=== PATIENT | female | born 1940 | race Caucasian/White ===

== ENCOUNTER 2024-10-23 15:11 | Emergency (ER) | payer MEDICARE, SELFPAY ==
[2024-10-23 15:21] VITALS: BP 152/78; PULSE 65; RESP 16; TEMP 36.8; O2SAT 98; BMI 25.7
--- NOTE | 2024-10-23 15:37 | ED.GENADULT ---
HPI - General Adult General Chief complaint: Unspecified Complaint, Adult Stated complaint: blood pressure changes Time Seen by Provider: 10/23/24 15:21 History of Present Illness HPI narrative: Pt reports her blood pressure has been fluctuating up and down today, pt mostly concerned with how high it has been. Pt has checked her blood pressure at least 13 times today, ranges from 140 -190 systolic. Pt reports her family member is having surgery today and this has been stressing her out as well . 84-year-old woman presenting to the emergency department with concern of elevated blood pressure. She has been measuring her systolic blood pressures today in the between 140 and 190 systolic. Does have a history of hypertension. here with her and she acknowledges that is very much affected by anxiety. She is not having shortness of breath or chest pain. No headaches or visual changes. No nausea. Is anticoagulated. Particularly mentions stressor of [id number] a being in the hospital. History also of non-Hodgkin's lymphoma in remission Related Data Home Medications ?Medication ?Instructions ?Recorded ?Confirmed amitriptyline 10 mg tablet mg PO 10/23/24 apixaban 2.5 mg tablet (Eliquis) 2.5 mg PO BID 10/23/24 10/23/24 atenolol 25 mg tablet 25 mg PO DAILY 10/23/24 10/23/24 atenolol 50 mg tablet 50 mg PO DAILY 10/23/24 10/23/24 calcium 600 mg capsule 600 mg PO DAILY 10/23/24 10/23/24 cholecalciferol (vitamin D3) 50 2,000 unit PO DAILY 10/23/24 10/23/24 mcg (2,000 unit) capsule famotidine 20 mg tablet 20 mg PO DAILY 10/23/24 10/23/24 levothyroxine 75 mcg tablet 75 mcg PO DAILY 10/23/24 10/23/24 losartan 25 mg tablet 12.5 mg PO BID 10/23/24 10/23/24 hhvmzrdd-bmk-cuia-FA-vit K-lut PO 10/23/24 omeprazole 20 mg capsule,delayed 20 mg PO DAILY 10/23/24 10/23/24 release psyllium PO 10/23/24 Allergies Allergy/AdvReac Type Severity Reaction Status Date / Time morphine AdvReac Mild Hallucinati Verified 10/23/24 15:28 ng Review of Systems Status of ROS: Reports: 6 or more systems reviewed and unremarkable except as noted in History and below Exam Narrative: Exam Narrative: Very pleasant. Of good energy. Anxious. Cranial nerves 2-12 intact. Moving all extremities without difficulties and she is well-perfused. Heart in regular rate and rhythm with 2/6 holosystolic murmur across the precordium. Lungs are clear. She is intensely chewing gum. Const: Vital Signs, click to edit/add: Vital Signs - 24 hr 10/23/24 15:21 Temperature 98.2 F Pulse Rate [Pulse Oximeter] 65 Respiratory Rate 16 Blood Pressure [Ri t Upper Arm] 152/78 H Pulse Oximetry 98 Oxygen Delivery Me thod Room Air Documenting provider has reviewed patient's vital signs: yes Course Vital Signs Vital signs: Initial Vital Signs Temperature 98.2 F 10/23/24 15:21 Temperature Source Temporal Artery Scan 10/23/24 15:21 Pulse Rate 65 10/23/24 15:21 Respiratory Rate 16 10/23/24 15:21 Blood Pressure 152/78 H 10/23/24 15:21 Blood Pressure Mean 102 10/23/24 15:21 Blood Pressure Position Sitting 10/23/24 15:21 Pulse Oximetry 98 10/23/24 15:21 Oxygen Delivery Method Room Air 10/23/24 15:21 Vital Signs Temperature 98.2 F 10/23/24 15:21 Pulse Rate 65 10/23/24 15:21 Respiratory Rate 16 10/23/24 15:21 Blood Pressure 152/78 H 10/23/24 15:21 Pulse Oximetry 98 10/23/24 15:21 Oxygen Delivery Method Room Air 10/23/24 15:21 Temperature 98.2 F 10/23/24 15:21 Pulse Rate 65 10/23/24 15:21 Respiratory Rate 16 10/23/24 15:21 Blood Pressure 152/78 H 10/23/24 15:21 Pulse Oximetry 98 10/23/24 15:21 Oxygen Delivery Method Room Air 10/23/24 15:21 Medical Decision Making MDM Narrative Medical decision making narrative: Offered reassurance regarding his blood pressure at this time. Arrives with a blood pressure 152/78. Does not have any other red flags to generate evaluation for hypertensive urgency or emergency. Spent majority of time in conversation, counseling. In review of records I see an echocardiogram from January of 2022 which showed normal LV size and wall thickness, hyperdynamic systolic function with an estimated ejection fraction of 70-75%. Moderately enlarged left atrium Mitral valve normal with mild regurgitation Suggestion of possible patent foramen ovale Feels improved and safe to return home. See patient discharge plan for further discussion Is okay to check your blood pressure. I think once or twice a day every couple of days is fine though and after some minutes of rest. Would check though otherwise if you seem to be feeling more lightheaded or have a bad headache or feeling short of breath with chest pain. Though for these symptoms, if they are persisting would also present to the emergency department. I do hope that things go well for her [id number], your family. Medical Records Medical records reviewed: Yes I reviewed the patient's medical records Discharge Plan Discharge Clinical Impression: High blood pressure, Other social stressor Patient Disposition: Home w/ Parent or Adult Condition: Improved Instructions: Hypertension (ED) Additional Instructions: Is okay to check your blood pressure. I think once or twice a day every couple of days is fine though and after some minutes of rest. Would check though otherwise if you seem to be feeling more lightheaded or have a bad headache or feeling short of breath with chest pain. Though for these symptoms, if they are persisting would also present to the emergency department. I do hope that things go well for her [id number], your family. Prescriptions: No Action atenolol 25 mg tablet 25 mg PO DAILY levothyroxine 75 mcg tablet 75 mcg PO DAILY famotidine 20 mg tablet 20 mg PO DAILY amitriptyline 10 mg tablet PO losartan 25 mg tablet 12.5 mg PO BID omeprazole 20 mg capsule,delayed release(DR/EC) 20 mg PO DAILY atenolol 50 mg tablet 50 mg PO DAILY Eliquis 2.5 mg tablet 2.5 mg PO BID cholecalciferol (vitamin D3) 50 mcg (2,000 unit) capsule 2,000 unit PO DAILY cllpevzm-idd-terf-FA-vit K-lut [Centrum Silver Women] PO calcium 600 mg capsule 600 mg PO DAILY psyllium [Metamucil (sugar)] PO Follow Up/Referrals: PEPE ZARAGOZA DO [Primary Care Provider] - Stand Alone Forms: WonderHowTo Info Instructions
== END 2024-10-23 16:25 | disposition home or self-care (01) ==
PROVIDERS: Emergency Provider Family Medicine; PCP Student in an Organized Health Care Education/Training Program
DX: I10 Essential (primary) hypertension (principal); F43.9 Reaction to severe stress, unspecified
CPT/HCPCS: 99282; 99283

== ENCOUNTER 2024-11-03 10:17 | Outpatient (RCR) | payer MEDICARE, SELFPAY | END 2025-01-12 10:35 | disposition home or self-care (01) | PROVIDERS: PCP Student in an Organized Health Care Education/Training Program; Visit Provider Family Medicine | DX: M17.12 Unilateral primary osteoarthritis, left knee (principal); M25.512 Pain in left shoulder; G89.29 Other chronic pain; R26.89 Other abnormalities of gait and mobility; Z51.89 Encounter for other specified aftercare | CPT/HCPCS: 97110; 97161 ==

== ENCOUNTER 2025-05-05 08:03 | Emergency (ER) | payer MEDICARE, SELFPAY ==
--- OUTSIDE RECORDS SUMMARY | 2025-05-05 08:05 | XMS_ITS | Clinical Summary ---
Author Organization [facility] Address [address] [place] [id number] Care Team Providers Care Supervisor Electronics Testing Name Role Phone Bruno Howard MD Unavailable [phone] Pepe Lange DO Primary Care Provider [phone] Leland Whaley MD Unavailable Angelina Medina NP Unavailable [phone] Allergies Active Allergy Reactions Criticality Noted Date Comments Rosuvastatin GI Upset 05/02/2023 Lactose *Unknown - Follow up needed 08/23/20 10 Morphine Hallucinations 04/23/2006 Pravastatin Myalgia 10/11/2020 Ezetimibe Myalgia 08/28/2023 Simvastatin Myalgia 07/15/2014 Medications MULTIPLE VITAMINS TAB take 1 tablet by oral route once daily with food 0 7 Active Calcium carbonate (OYSTERSHELL CALCIUM) 500 mg tablet 1 tab daily 0 4 Active cholecalciferol (VITAMIN D-3) 2,000 unit capsule Take 1 capsule by mouth once daily. 0 9 Active saliva substitute (BIOTENE DRY MOUTH ORAL RINSE) mouthwash Swish and spit 15 mL by mouth 4 times daily if needed for Dry Mouth. 0 0 Active psyllium husk (METAMUCIL) 0.4 gram cap Take by mouth. 0 0 Active fexofenadine (ANABEL) 180 mg tabletIndications: Nausea Take 180 mg by mouth once daily with a meal. Do not crush or chew. 90 Tablet 1 1 Active atenoloL (TENORMIN) 25 mg tabletIndications: PAF (paroxysmal atrial fibrillation) (HC),HTN (hypertension) TAKE 1 TABLET BY MOUTH ONE TIME DAILY 90 Tablet 3 4 Active levothyroxine (SYNTHROID) 75 mcg tabletIndications: Other specified hypothyroidism Take 1 Tablet (75 mcg) by mouth once daily. 90 Tablet 3 4 Active apixaban (Eliquis) 2.5 mg tabletIndications: PAF (paroxysmal atrial fibrillation) (HC) Take 1 Tablet (2.5 mg) by mouth two times daily. 180 Tablet 3 4 Active atenoloL (TENORMIN) 50 mg tabletIndications: PAF (paroxysmal atrial fibrillation) (HC),Palpitations TAKE 1 TABLET BY MOUTH ONE TIME DAILY 90 Tablet 2 4 Active famotidine (PEPCID) 20 mg tabletIndications: Chronic GERD Take 1 Tablet (20 mg) by mouth once daily. 90 Tablet 3 4 Active omeprazole (PRILOSEC) 20 mg Delayed-Release capsuleIndications :Chronic GERD Take 1 Capsule by mouth once daily before a meal. 90 Capsule 3 5 Active amitriptyline 10 mg tabletIndications: Nausea TAKE TWO TABLETS BY MOUTH DAILY AT BEDTIME 180 Tablet 5 Active cycloSPORINE (Restasis) 0.05 % ophthalmic emulsionIndication s:Keratitis sicca, both eyes Place 1 Drop into both eyes every 12 hours. 60 Each 3 5 Active nystatin 100,000 unit/mL suspension Swish and swallow 5 mL (500,000 units) by mouth four times daily for 7 days.* 5 Active valsartan 40 mg tabletIndications: Resistant hypertension Take 2 Tablets (80 mg) by mouth once daily. 5 Active valsartan (DIOVAN) 40 mg tabletIndications: Resistant hypertension Take 1 Tablet (40 mg) by mouth once daily. 90 Tablet 3 5 04/27/20 25 Discontin ued(*Medi cation adjustmen t) amLODIPine (NORVASC) 2.5 mg tabletIndications: Resistant hypertension Take 2 Tablets (5 mg) by mouth once daily. 180 Tablet 5 04/27/20 25 Discontin ued(*Med complete/ Regimen complete/ Level of care change) Active Problems Problem Noted Date Diagnosed Date Follicular lymphoma grade i, lymph nodes of mult iple sites 06/29/2024 Overview (06/29/2024): Documented on 06/08/2022 Peripheral vascular disease, unspecified 024 Chronic pain of both knees 07/20/2023 Overview (09/30/2024): Jul 2023: bilateral pes bursa injections by Dr. Potter. December 2023: Bilateral intra-articular knee joint injections with steroid. 80% improvement 1 week after injections. March 2024: Left knee only Synvisc ONE injection. Sep 2024: Left knee cortisone injection. 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 Potter did left knee pes bursa injection, 75% improvement at 1 week. Jul 2023: bilateral pes bursa injections by Dr. Potter. March 2024: Left knee only Synvisc ONE injection. Sep 2024: Repeat left knee joint cortisone injection, reports 75% improvement at 2 weeks. Nuclear senile cataract of both eyes 09/02/2017 Osteopenia of multiple sites 08/13/2017 Overview (08/13/2017): DEXA 08/2017 Mucosa-associated lymphoid tissue (MALT) lymphom a 02/28/2016 Lymphoma of intestine 04/15/2013 Overview (09/29/2019): Found on EGD. Follicular lymphoma. Surgery January 2016 at [facility] for right side of neck. EGD 09/2019 follicular lymphoma Microcytic anemia 03/16/2013 Transient ischemic attack (TIA) 07/10/2010 010 Carotid stenosis, right 07/10/2010 Overview (07/10/2010): Needs surgical consult Vitamin D deficiency 09/22/2009 Tear film insufficiency, unspecified 01/02/2008 Cortical senile cataract 01/02/2008 Presbyopia 12/26/2006 HYPERTENSION 01/03/2004 Acquired hypothyroidism 09/13/2000 DIVERTICULOSIS, COLON W/O HEM 08/22/2000 Overview (09/24/2019): Incomplete Colonoscopy 09/2019 severe divert[address]osis, recommend CT colonography INSOMNIA NEC 02/26/2000 ULCER, ACUTE PEPTIC W/O HEM OR PERF 11/22/1998 Encounters Date Type Department Care Team Description 05/04/2025 Telephone [facility] [address] [place] [address] Pepe Lange DO UTI 04/27/2025 1:40 PM CDT Office Visit [facility] [address] [place] [address] Pepe Lange DO Musculoskeletal Problem (Has been moving and thinks she pulled a muscle on the left side - tylenol helped and she was able to sleep ) 04/27/2025 Travel 04/21/2025 Telephone [facility] [address] [place] [address] Pepe Lange DO Medication Management (amLODIPine (NORVASC) 2.5 mg tablet/valsartan (DIOVAN) 40 mg tablet /); Dizzy 04/20/2025 2:10 PM CDT Office Visit [address] [address] Kusum Levine PA Sores In Mouth 04/20/2025 Travel 04/20/[address] [address] Pepe Lange DO Medication Management 04/15/[address] [address] Yamile Benito MD Questions (Thrush) 04/14/2025 9:45 AM CDT Ancillary Procedure [address] [address] 04/14/2025 Travel 04/07/2025 Orders Only [facility] [address] [place] [address] Pepe Lange DO Lab 04/05/[address] [address] Pepe Lange DO Results (xray results ) 04/01/2025 Telephone [facility] [address] [facility] [place] [address] Scar Hernandez OD Prior Authorization (cycloSPORINE (Restasis) 0.05 % ophthalmic emulsion PA not needed Brand name preferred.) 03/30/2025 2:15 PM CDT Ancillary Procedure [address] [address] 03/30/2025 1:15 PM CDT Office Visit [address] [address] Pepe Lange DO Fall (03/21 - felt dizzy/blurry and fell on butt - has not noted anything since /) 03/30/2025 Travel 03/26/2025 11:00 AM CDT Office Visit [facility] [address] [place] [address] Scar Hernandez, OD Eye Exam (CEE) 03/26/2025 Travel 03/22/2025 Refill [facility] [address] [place] [address] Pepe Lange DO Refill Request (Amitriptyline) 03/10/2025 10:25 AM CDT Office Visit [facility] [address] [place] [address] Yamile Benito MD Throat Problem (Very dry throat. normally has dry throat but yesterday it was so bad even water didn't help.); Concerns (Concerns with bowels. Not sure if she is going regularly. Was is considered normal. ) 03/10/2025 Telephone [facility] [address] [place] [address] Pepe Lange DO BP READING 03/10/2025 Travel 03/05/2025 Telephone [facility] [address] [place] [address] Pepe Lange DO Health Maintenance Update 02/05/2025 Nurse Triage [facility] [address] [place] [address] Pepe Lange DO High Blood Pressure 02/04/2025 Telephone [facility] [address] [place] [address] Angelina Medina NP Follow Up (Nephrology Post Visit (Jan 25, 2025) RN Follow-up Call ) 02/02/2025 12:30 PM CERTIFIED SCRUB TECH Office Visit [facility] [address] [place] [address] Marisol De Paz AuD Hearing Problem (Hearing test) 02/02/2025 Travel from Last 3 Months Immunizations Immunization Administration Dates Next Due AMB Influenza, IIV3 (Age >=3 years)(Flu Clinic Only) 10/23/2008 Amb Influenza, Inact (High-d ose) (Flu Clinic Only) 09/01/2014 COVID-19 VACCINE SPIKEVAX (M ODERNA 50MCG/0.5ML) 12YO+ PFS 12/31/2023 COVID-19 vaccine (Nitero-Bio NTech 30mcg/0.3mL) 12YO+ WESTLEY-SUCROSE PF, MDV 05/07/2022 COVID-19 vaccine (Pfizer-Bio NTech 30mcg/0.3mL) PF, MDV 08/28/2021,01/31/2021,01/10/2021 Influenza, High-dose Inactivated 08/14/2024,08/03,09/20/2015 Influenza, IIV3 (Age >=3 years) 09/04/20 13,08/25/2012,09/04/2011,2009,10/04/2009,09/25/2007,10/04/2003 Influenza, Inactivated AIIV4 (Age 65+ Years) Preserv Free 10/22/2023,08/27/2022,09/08/2021,2019 Influenza, Inactivated IIV3 (Age 65+ Years) Preserv Free 08/25/2019,08/12/2018,08/01/2017 Pneumococcal Poly,23-Valent (Pneumovax) 09/25/2007 Pneumococcal conj 13-Valent (Prevnar 13) 08/23/2015 Td (Age >=7 Years) 08/16/2003,07/20/2003, 992 Td, Preservative Free (age > = 7 Years) 10/07/2017 Zoster (Shingrix-RZV, recombinant) 02/05/2022, Family History Medical History Relation Name Comments Dementia Brother 1 Good Health Brother 2 Other Daughter Migraine Cataracts Father Heart attack Father Transient ischemic attack Father Cancer-breast Maternal Aunt Cataracts Mother Thyroid Disease Mother Genetic Other mother: dec @ 8 9 complications to colon CA screening, thyroid dz~father: dec @ 87, h/o [place] in 50s, HTN~grprs: unknown~sibs: HTN~kids: A\T\W Cancer-breast Sister 1 With metastase s Lung cancer Sister 2 Good Health Sister 3 Other Sister 4 Thick mucous in her mouth, unclear diagnosis Cancer-colon Son Willam Cancer-ovarian No Family History Relation Name Status Comments Brother 1 Brother 2 Alive Daughter Alive Father Maternal Aunt Mother Other Sister 1 Sister 2 Sister 3 Alive Sister 4 Alive Son Willam Alive Social History Tobacco Use Types Packs/Day Years Used Date Smoking Tobacco: Never Smokeless Tobacco: Never Tobacco Cessation:Counseling Given: Yes Alcohol Use Standard Drinks/Week Comments No 0 (1 standard drink = 0.6 oz pur e alcohol) PHQ-2 Answer Date Recorded PHQ-2 TOTAL SCORE 0 06/29/2024 Social Connections Answer Date Recorded Do you often feel lonely or isolated from those around you? 0 11/16/2024 Financial Resource Strain Answer Date R ecorded Difficulty of Paying Living Expenses 3 11/16/2024 Difficulty of Paying Living Expenses Not on file 11/16/2024 Food Insecurity Answer Date Recorded Do you worry your food will run out before you are able to buy more? 1 11/16/2024 Transportation Needs Answer Date Record ed Does lack of transportation keep you from medica l appointments? 1 11/16/2024 Does lack of transportation keep you from work, meetings or getting things that you need? 1 11/16/2024 Housing Stability Answer Date Recorded What is your housing situation today? 1 11/16/2024 Interpersonal Safety Answer Date Record ed Are you being hit, kicked, p ushed or yelled at (see row info)? Unable to assess, family/SO in room. 11/29/2024 Interpersonal Safety Abuse 12 - 18 Not on file 11/29/2024 Interpersonal Safety Ambulat ory Vulnerability Not on file 11/29/2024 Utilities Answer Date Recorded Do you have trouble paying f or utilities (for example, heat, electricity, water, phone)? 1 11/16/2024 Comments No Sex and Gender Information Value Date Recorded Sex Assigned at Not on file Legal Sex Female 5:24 AM CERTIFIED SCRUB TECH Gender Identity Not on file Sexual Orientation Not on file Obstetrics History Para Term AB IAB SAB Ectopic Multiple Livin g Live Births 5 5 5 0 0 0 0 0 0 5 Date Outcome GA Total Labor Labor/2nd/3rd Weight Sex Type Anes PTL Camilla A1 A5 Name Clin Term Term Term Term Term Last Filed Vital Signs Vital Sign Reading Time Taken Comments Blood Pressure 175/92 04/27/2025 1:53 PM CDT rec heck Pulse 62 04/27/2025 1:51 PM CDT Temperature 37.2 C (98.9 F) 11/29/2024 7:39 PM CERTIFIED SCRUB TECH Respiratory Rate 16 11/29/2024 10:00 PM CERTIFIED SCRUB TECH Oxygen Saturation 99% 04/27/2025 1:51 PM CDT Inhaled Oxygen Concentration - - Weight 54.6 kg (120 lb 6.4 oz) 03/10/2025 10:19 AM CDT Height 147.3 cm (4' 10) 11/29/2024 7:39 PM CERTIFIED SCRUB TECH Body Mass Index 25.16 11/29/2024 7:39 PM CERTIFIED SCRUB TECH Plan of Treatment Upcoming Encounters Date Type Department Care Team (Late st Contact Info) Description 05/27/2025 9:45 AM CDT Orders Only [facility] [address] [address] [facility] [place] [address] Lab, Farm 06/11/2025 1:00 PM CDT Office Visit [facility] [address] [facility] [address] [place] [address] Dixie Thomas MD [address] [facility] [address] [place] [address] 07/26/2025 10:00 AM CDT Orders Only [facility] [address] [place] [address] Lab, Farm 07/30/2025 11:30 AM CDT Office Visit [facility] [address] [place] [address] [place] [address] [place] [address] Health Maintenance Due Date Last Done Comments RSV vaccine for adults or (1 - 1-dose 75+ series) 2017 COVID-19 vaccine series ( season) 2024 12/31/2023, 05/07/2022, 08/28/2021, Additional history exists BMI (ht and wt on same day) for age 18+ 06/29/2025 06/29/2024, 06/22/2024, 09/12/2023, Additional history exists Depression screening for age 12+ 06/29/2025 06/29/2024, 07/01/2023, 06/11/2022, Additional history exists Medicare Wellness for age 65+ 06/30/2025 06/29/2024, 07/01/2023, 06/11/2022, Additional history exists Tetanus booster 10/07/2027 10/07/2017, 08/02, 07/20/2003, Additional history exists Pneumococcal series for age 50+ Completed 08/23/2015, 09/25/2007 DEXA/DXA scan for age 65+ Completed 08/08/2017, Zoster (shingles) series for age 50+ Completed 02/05/2022, 12/05/2021 Influenza Vaccine Completed 08/14/2024, , 08/27/2022, Additional history exists Hepatitis B series for 19+ Aged Out N o longer eligible based on patient's age to complete this topic Tdap Discontinued Medical Devices Implanted Type Area Publishing Specialist Device Identifier Shelf Expiration Date Model / Serial / Lot Fabric Cardiovasc 0.3x3in Hemashield [id number] - [id number] Implanted:Qty: 1 on 08/23/2010 at [facility] Right: Carotid Artery [employer] 04/01/2015 [id number] / / [id number] Iol [place] Preload 1 Pc Clear 6mm 19.00 Diopter Tecnis - [id number] Implanted:Qty: 1 on 04/16/2024 by Malik Currie MD at [facility] Left: Eye [employer] 10/28/2026 [id number] / [id number] / NA Procedures Procedure Name Priority Date/Time Associated Diagnosis Comments US CAROTID DUPLEX BILATERAL Routine 04/14/2025 10:02 AM CDT Carotid stenosis, right OCCULT BLOOD IFOBT STOOL Routine 03/31/2025 11:24 AM CDT Dark stools XR SPINE CERVICAL 3 VIEWS Routine 03/30/2025 2:57 PM CDT Neck pain HEMOGLOBIN Routine 03/30/2025 2:16 PM CDT Dark stools XR DXA BONE DENSITY 2 SITES AXIAL Routine 08/08/2017 11:25 AM CDT Other specified menopausal and perimenopausal disorders Osteopenia, unspecified location from Last 3 Months or Most Recently Relevant to Health Maintenance Results * US CAROTID DUPLEX BILATERAL (04/14/2025 10:02 AM CDT) Anatomical Region Laterality Modality CAROTID, NECK Ultrasound Impressions 04/15/2025 2:35 PM CDT Stable less than 50 percent narrowing of the cervical ICAs bilaterally. José Miguel Ramires D.O. Neuroradiologist [email or web address] Narrative 04/15/2025 2:35 PM CDT Table formatting from the original result was not included. For Patients: As a result of the Cures Act, medical imaging exams and procedure reports are released immediately into your electronic medical record. You may view this report before your referring provider. If you have questions, please contact your health care provider. BILATERAL CAROTID ULTRASOUND, 04/14/2025 CLINICAL HISTORY: Right carotid stenosis. History of endarterectomy. TECHNIQUE: The carotid circulations and the vertebral arteries in the neck were examined with dueñas-scale ultrasound, color-flow and Doppler spectral analysis. Degrees of stenosis were determined using SRU 2002 Consensus Panel Criteria. COMPARISON: 04/26/2023. FINDINGS: Evidence of plaque formation within the distal common carotid arteries extending into the proximal cervical ICAs. There is mild flow velocity within the cervical ICAs. Antegrade flow within the vertebral arteries bilaterally. Multiphasic flow in the subclavian arteries bilaterally. Peak-Systolic Velocity Right Left Distal CCA 63 72 Proximal ICA 68 132 Mid ICA 107 86 Distal ICA 94 52 ICA/CCA Ratio Right Left 1.7 1.8 Vertebral Artery Right Left Antegrade x x Pepe Jose Antoniosofy DO US Final Result * OCCULT BLOOD IFOBT STOOL (03/31/2025 11:24 AM CDT) STOOL BLOOD ,IFOBT Negative Negative 04/07/2025 5:18 PM CDT [facility] Stool STOOL SPECIMEN / Unknown Non-Blood / Unknown 03/31/2025 11:24 AM CDT 04/07/2025 11:24 AM CDT Ade Jose Antoni[facility]ral [facility] DO LABORATORY Final Result [facility] [address] [place] [address], [place] * XR SPINE CERVICAL 3 VIEWS (03/30/2025 2:57 PM CDT) Anatomical Region Laterality Modality CERVICAL SPINE Computed Radiogr aphy 03/30/2025 3:36 PM CDT Narrative 03/30/2025 3:36 PM CDT For Patients: As a result of the Cures Act, medical imaging exams and procedure reports are released immediately into your electronic medical record. You may view this report before your referring provider. If you have questions, please contact your health care provider. Indication: Neck pain. Technique: Odontoid, AP and lateral views. Comparison: Cervical spine radiograph 01/29/2020 Findings: Normal retropharyngeal soft tissues. Degenerative disc disease and facet arthrosis throughout the cervical spine. 2 millimeter anterolisthesis of C3 is new compared to the previous exam. Minimal anterolisthesis of C7 is likely unchanged. Bones are osteopenic. No fracture or suspicious bone lesion. Impression: 1. Degenerative spondylosis of the cervical spine. 2. Osteopenia. Dictated by Josh Garland MD @ 03/30/2025 3:36:07 PM (Electronically Signed) Procedure Note Josh Garland MD - 03/30/2025 For Patients: As a result of the Cures Act, medical imagingexams and procedure reports are released immediately into your electronicmedical record. You may view this report before your referring provider.If you have questions, please contact your health care provider. Indication: Neck pain. Technique: Odontoid, AP and lateral views. Comparison: Cervical spine radiograph 01/29/2020 Findings: Normal retropharyngeal soft tissues. Degenerative disc disease and facetarthrosis throughout the cervical spine. 2 millimeter anterolisthesis ofC3 is new compared to the previous exam. Minimal anterolisthesis of C7 islikely unchanged. Bones are osteopenic. No fracture or suspicious bonelesion. Impression: 1. Degenerative spondylosis of the cervical spine. 2. Osteopenia. Dictated by Josh Garland MD @ 03/30/2025 3:36:07 PM (Electronically Signed) Pepe Lange DO GENERAL IMAGING Final Result * HEMOGLOBIN (03/30/2025 2:16 PM CDT) HEMOGLOBIN 11.9 11.7 - 15.5 g/dL [facility] jeff Kevin Blood BLOOD SPECIMEN / Unknown 03/30/2025 2:16 PM CDT 03/30/2025 2:17 PM CDT Pepe Lange DO HEMATOLOGY Final Result [facility] [address] [place] [address], [facility] [address] [place] [address] * (ABNORMAL) XR DXA BONE DENSITY 2 SITES AXIAL (08/08/2017 11:25 AM CDT) Anatomical Region Laterality Modality Spine, HIPS, HIPL, HIPR Other Narrative 08/14/2017 7:40 AM CDT Please see scanned document for results of this study. Lisa Gilmore DO DEXA Final Resul t from Last 3 Months or Most Recently Relevant to Health Maintenance Insurance [employer] MEDICARE ADVANTAGE MR [facility] MR MEDICARE PART A HB ONLY Advance Directives * Full Code (Latest Code Status on File) Date Activated Date Inactivated Comments 01/22/2013 7:47 AM 01/23/2013 2:26 AM * Full Code Date Activated Date Inactivated Comments 07/26/2011 1:46 PM 07/27/2011 2:38 AM * Full Code Date Activated Date Inactivated Comments 08/23/2010 11:39 AM 08/24/2010 6:47 PM * Full Code Date Activated Date Inactivated Comments 08/23/2010 7:36 AM 08/23/2010 7:50 AM * Full Code Date Activated Date Inactivated Comments 07/02/2007 7:32 PM 07/03/2007 3:42 PM Care Teams Supervisor Electronics Testing Relationship Specialty Start Date End Date Pepe Lange DO [address] [place] [address] PCP - General Family Practice 06/11/22 Bruno Howard MD Oncology Hematology and Oncology 12/03/16 [place] [address] [place] [address] Nephrology 12/21/24 [place] [address] [place] [address] Nephrology 01/25/25
[2025-05-05 08:26] VITALS: BP 171/78; PULSE 78; RESP 20; TEMP 36; O2SAT 96; BMI 24.7
--- NOTE | 2025-05-05 08:53 | ED.GENADULT ---
HPI - General Adult General Chief complaint: Urogenital Problems, Female Stated complaint: urinating blood Time Seen by Provider: 05/05/25 08:07 History of Present Illness HPI narrative: Patient reports some mild dysuria and urinary frequency as well as being on apixaban seeing some blood in her urine today. She is not lightheaded or dizzy although she has struggles with chronic weakness. She takes the apixaban for a prior stroke. Of she took it this morning. She has had no rigors chills or flank pain. She does have some mild dysuria as mention. Related Data Home Medications ?Medication ?Instructions ?Recorded ?Confirmed amitriptyline 10 mg tablet mg PO 10/23/24 apixaban 2.5 mg tablet (Eliquis) 2.5 mg PO BID 10/23/24 05/05/25 atenolol 25 mg tablet 25 mg PO DAILY 10/23/24 05/05/25 atenolol 50 mg tablet 50 mg PO DAILY 10/23/24 05/05/25 calcium 600 mg capsule 600 mg PO DAILY 10/23/24 05/05/25 cholecalciferol (vitamin D3) 50 2,000 unit PO DAILY 10/23/24 05/05/25 mcg (2,000 unit) capsule famotidine 20 mg tablet 20 mg PO DAILY 10/23/24 05/05/25 levothyroxine 75 mcg tablet 75 mcg PO DAILY 10/23/24 05/05/25 losartan 25 mg tablet 12.5 mg PO BID 10/23/24 05/05/25 uodututr-kir-bhiq-FA-vit K-lut PO 10/23/24 omeprazole 20 mg capsule,delayed 20 mg PO DAILY 10/23/24 05/05/25 release psyllium PO 10/23/24 valsartan 40 mg tablet 40 mg PO DAILY 05/05/25 05/05/25 Previous Rx's ?Medication ?Instructions ?Recorded nitrofurantoin 100 mg PO Q12H 7 days #14 caps 05/05/25 monohydrate/macrocrystals 100 mg capsule (Macrobid) Allergies Allergy/AdvReac Type Severity Reaction Status Date / Time morphine AdvReac Mild Hallucinati Verified 05/05/25 08:22 ng Review of Systems Status of ROS: Reports: 6 or more systems reviewed and unremarkable except as noted in History and below Exam Narrative: Exam Narrative: Objective vital signs look within normal limits pulse is 70 and regular Alert orient x3 No apparent distress No CVA tenderness no suprapubic tenderness. Patient is ambulatory without difficulty Const: Vital Signs, click to edit/add: Vital Signs - 24 hr 05/05/25 08:26 Temperature 96.8 F L Pulse Rate [Pulse Oximeter] 78 Respiratory Rate 20 Blood Pressure [Ri ght Upper Arm] 171/78 H Pulse Oximetry 96 Oxygen Delivery Me thod Room Air Course Vital Signs Vital signs: Initial Vital Signs Temperature 96.8 F L 05/05/25 08:26 Temperature Source Temporal Artery Scan 05/05/25 08:26 Pulse Rate 78 05/05/25 08:26 Respiratory Rate 20 05/05/25 08:26 Blood Pressure 171/78 H 05/05/25 08:26 Blood Pressure Mean 109 H 05/05/25 08:26 Pulse Oximetry 96 05/05/25 08:26 Oxygen Delivery Method Room Air 05/05/25 08:26 Vital Signs Temperature 96.8 F L 05/05/25 08:26 Pulse Rate 78 05/05/25 08:26 Respiratory Rate 20 05/05/25 08:26 Blood Pressure 171/78 H 05/05/25 08:26 Pulse Oximetry 96 05/05/25 08:26 Oxygen Delivery Method Room Air 05/05/25 08:26 Temperature 96.8 F L 05/05/25 08:26 Pulse Rate 78 05/05/25 08:26 Respiratory Rate 20 05/05/25 08:26 Blood Pressure 171/78 H 05/05/25 08:26 Pulse Oximetry 96 05/05/25 08:26 Oxygen Delivery Method Room Air 05/05/25 08:26 Medications Administered Medications: Discontinued Medications Generic Name Dose Route Start Last Admin Trade Name Freq PRN Reason Stop Dose Admin Ceftriaxone Sodium 500 mg 05/05/25 08:57 05/05/25 09:21 Ceftriaxone 500 Mg Vial IM 05/05/25 08:58 500 mg ONCE ONE Administration Lidocaine HCl 1 ml 05/05/25 08:57 05/05/25 09:22 Lidocaine 1% 5 Ml (Pf) 5 Ml Vial IM 1 ml DIRECTED PRN Administration Pain Medical Decision Making MDM Narrative Medical decision making narrative: This 84 year white female with dysuria and frequency and gross hematuria currently on apixaban. I think at this point will check a UA but likely that might be nondiagnostic with amount of blood. Would recommend a 500 mg IM Rocephin injection followed by Macrodantin for 7 days. Would hold the apixaban for probably 2-3 days. And then may restart. She does not take this for AFib at this time she mentions she and her pulses regular the patient has had a stroke in the past. I think that risk of continuing apixaban outweighs the benefit while she is still bleeding. And will treat with antibiotics as above. Patient were comfortable plan. Lab Data Labs: Lab Results 05/05/25 Range/Units 09:05 Urine Color Red A (Yellow) Urine Appearance Cloudy A (Clear) Urine pH 6.5 (5.0-8.5) Ur Specific [place] 1.010 (1.000-1.030) Urine Protein 3+ A (Negative) Urine Glucose (UA) Negative (Negative) Urine Ketones Trace A (Negative) Urine Blood 3+ A (Negative) Urine Nitrite Positive A (Negative) Urine Bilirubin 2+ A (Negative) Urine Urobilinogen 1.0 (0.2-1.0) Ur Leukocyte Esterase 1+ A (Negative) Urine RBC >100 A (0-2) Urine WBC 25-50 A (0-5) Urine WBC Clumps Few A (None) Ur Squamous Epith Cells Few (None-Few) Urine Bacteria Moderate A (None) Discharge Plan Discharge Clinical Impression: Urinary tract infection, Hematuria Patient Disposition: Home w/ Parent or Adult Condition: Stable Additional Instructions: Stop the apixaban for 3 days, Macrodantin will be given you can start that today 1 pill twice a day for 7 days. Light activity, drink plenty of fluids. Activity Level: Light activity Discharge Diet: Regular Prescriptions: New nitrofurantoin monohyd/m-cryst [Macrobid] 100 mg capsule 100 mg PO Q12H 7 Days Qty: 14 0RF Rx Instructions: must administer with a meal/food No Action atenolol 25 mg tablet 25 mg PO DAILY levothyroxine 75 mcg tablet 75 mcg PO DAILY famotidine 20 mg tablet 20 mg PO DAILY amitriptyline 10 mg tablet PO losartan 25 mg tablet 12.5 mg PO BID omeprazole 20 mg capsule,delayed release(DR/EC) 20 mg PO DAILY atenolol 50 mg tablet 50 mg PO DAILY Eliquis 2.5 mg tablet 2.5 mg PO BID cholecalciferol (vitamin D3) 50 mcg (2,000 unit) capsule 2,000 unit PO DAILY vyyhwbal-iaa-tssf-FA-vit K-lut [Centrum Silver Women] PO calcium 600 mg capsule 600 mg PO DAILY psyllium [Metamucil (sugar)] PO valsartan 40 mg tablet 40 mg PO DAILY Follow Up/Referrals: PEPE ZARAGOZA DO [Primary Care Provider, Family Practice] Stand Alone Forms: MyHealth Info Instructions
[2025-05-05 09:13] LABS: Appearance Urine Cloudy (Clear); Bilirubin Urine 2+ (Negative); Blood Urine 3+ (Negative); Color Urine Red (Yellow); Glucose Urine Negative (Negative); Ketones Urine Trace (Negative); Leukocyte Esterase Urine 1+ (Negative); Nitrite Urine Positive (Negative); Protein Urine 3+ (Negative); pH Urine 6.5 (5.0-8.5)
[2025-05-05] MEDS: cefTRIAXone 500 MG VIAL IM (09:21)
[2025-05-05] MEDS: LIDOCAINE 1% 5 ml (pf) 5 ML VIAL 1 ML IM (09:22)
[2025-05-05 09:24] LABS: RBC Urine >100 (0-2)
[2025-05-05 09:25] LABS: Bacteria Urine Moderate; Squamous Epithelial Cell Urine Few (None-Few); WBC Clumps Urine Few; WBC Urine 25-50 (0-5)
== END 2025-05-05 09:38 | disposition home or self-care (01) ==
LOC: ED 08:56
PROVIDERS: Emergency Provider Family Medicine; PCP Student in an Organized Health Care Education/Training Program
DX: N39.0 Urinary tract infection, site not specified (principal); R31.9 Hematuria, unspecified
CPT/HCPCS: 81001; 87086; 96372; 99284; J0696

== ENCOUNTER 2025-05-12 20:37 | Emergency (ER) | payer MEDICARE, SELFPAY ==
--- OUTSIDE RECORDS SUMMARY | 2007-07-09 13:23 | XMS_ITS | Continuity of Care Document ---
Author Organization [facility] Address [address] [address] [place] [address] Phone Care Team Providers Care Environmental Health Nurse Name Role Phone Lake THAPA, Luis Unavailable Unavailable Procedures Procedure Date Init Inpt Cons New/est [facility] 7 Advance Directives Directive Yes / No Effective Date File Name No Information Encounters Encounter Description Practice Location Reason(s) For Visit Diagnoses Date Provider Providers Copied on Encounter Init Inpt Cons New/[facility], [address] [address], [place], [place], [id number], tel:[phone] [facility] No Information Lake THAPA Luis. [address] [address], [place], [place], [id number], [place]. tel:[phone] Referring Provider: Jeanne Evans MD [place], [address] [facility] [facility] [place], [address]. tel:[phone] Family History Family Member Type Diagnosis Age At Onset No Information Payers Payer name Insurance type Covered democrat ID Authoriza tion(s) No Information Social History Type Description Quantity Date Captured Comments Sex Female Smoking Status No Information Chief Complaint And Reason For Visit No Information Reason For Referral Reason For Referral No Information History Of Present Illness Encounter Date Complaint History Of Prese nt Illness No Information Functional Status Date Functional Assessmen t No Information Instructions Date Instruction Additional Infor mation No Information Assessments Type Assessment Date No Information Patient Care Teams Name Effective Dates (start - stop) Status Members No Information
[2025-05-12] VITALS (16 sets, daily range): BP systolic 175–199; BP diastolic 84–109; PULSE 69–110; RESP 7–26; TEMP 36.7; O2SAT 85–100; BMI 24.7
--- OUTSIDE RECORDS SUMMARY | 2025-05-12 20:39 | XMS_ITS | Clinical Summary ---
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 5 05/10/20 25 Discontin ued(*Elva ent states no longer taking) cephalexin 500 mg capsuleIndications :Lower urinary tract symptoms (LUTS) Take 1 Capsule (500 mg) by mouth two times daily for 7 days. 14 Capsule 5 05/10/20 25 Discontin ued(*Elva ent states no longer taking) Active Problems Problem Noted Date Diagnosed Date [...] EGD. Follicular lymphoma. Surgery January 2016 at [facility] for right side of neck. EGD 09/2019 [...] Encounters Date Type Department Care Team Description 05/12/2025 Telephone [facility] [address] [place] [address] Pepe Lange DO Medication Management (Questions) 05/11/2025 4:53 PM CDT - 05/11/2025 5:39 PM CDT Emergency [facility] [place] [address] [place] [address] Vianney Cavazos PA Urinary hesitancy (Primary Dx) Discharge Disposition: Home Self Care 05/11/2025 Travel 05/11/2025 Telephone [facility] [address] [place] [address] Alberto Akins MD Referral (Gross Hematuria) 05/11/2025 Telephone [facility] [address] [place] [address] Christine Kirk DO Referral 05/10/2025 12:30 PM CDT Ancillary Procedure [facility] [address] [place] [address] Arrived 05/10/2025 11:15 AM CDT Office Visit [address] [address] Christine Kirk DO Urinary Problem (Follow up - does have a little back pain) 05/10/2025 Travel 05/07/2025 2:50 PM CDT Office Visit [facility] [address] [place] [address] Christine Kirk DO UTI (was seen at [facility] on 05/05, now feeling very weak, currently on antibiotic bid for 7 days. main sx is abdominal pain/bloating) 05/07/2025 Travel 05/05/2025 Telephone [facility] [address] [place] [address] [place] [address] Dixie Thomas MD Medication Management (Eliquis hold ) 05/05/2025 Nurse Triage [facility] [address] [place] [address] Pepe Lange DO Appointment 05/04/2025 Telephone [facility] [address] [place] [address] Pepe Lange DO UTI 04/27/2025 1:40 PM CDT Office Visit [address] [address] Pepe Lange DO Musculoskeletal Problem (Has been moving and thinks she pulled a muscle on the left side - tylenol helped and she was able to sleep ) 04/27/2025 Travel 04/21/[address] [address] Pepe Lange DO Medication Management (amLODIPine (NORVASC) 2.5 mg tablet/valsartan (DIOVAN) 40 mg tablet /); Dizzy 04/20/2025 2:10 PM CDT Office Visit [address] [address] Kusum Levine PA Sores In Mouth 04/20/2025 Travel 04/20/[address] [address] Pepe Lange DO Medication Management 04/15/[address] [address] Yamile Benito MD Questions (Thrush) 04/14/2025 9:45 AM CDT Ancillary Procedure [address] [address] 04/14/2025 Travel 04/07/2025 Orders Only [facility] [address] [place] [address] Pepe Lange DO Lab 04/05/[address] [address] Pepe Lange DO Results (xray results ) 04/01/2025 Telephone [facility] [address] [place] [address] Scar Hernandez, OD Prior Authorization (cycloSPORINE (Restasis) 0.05 % ophthalmic emulsion PA not needed Brand name preferred.) 03/30/2025 2:15 PM CDT Ancillary Procedure [facility] [address] [place] [address] 03/30/2025 1:15 PM CDT Office Visit [facility] [address] [place] [address] Pepe Lange DO Fall (20 - felt dizzy/blurry and fell on butt - has not noted anything since /) 03/30/2025 Travel 03/26/2025 11:00 AM CDT Office Visit [facility] [address] [place] [address] Scar Hernandez, OD Eye Exam (CEE) 03/26/2025 Travel 03/22/2025 Refill [facility] [address] [place] [address] Pepe Lange DO Refill Request (Amitriptyline) 03/10/2025 10:25 AM CDT Office Visit [facility] [address] [place] [address] Yamile Benito MD Throat Problem (Very dry throat. normally has dry throat but yesterday it was so bad even water didn't help.); Concerns (Concerns with bowels. Not sure if she is going regularly. Was is considered normal. ) 03/10/2025 Telephone [facility] [address] [place] [address] Pepe Lange DO BP READING 03/10/2025 Travel 03/05/2025 Telephone [facility] [address] [place] [address] Pepe Lange DO Health Maintenance Update from Last 3 Months Immunizations Immunization Administration Dates Next Due AMB Influenza, IIV3 (Age >=3 years)(Flu Clinic Only) 10/23/2008 Amb Influenza, Inact (High-d ose) (Flu Clinic Only) 09/01/2014 COVID-19 VACCINE SPIKEVAX (M ODERNA 50MCG/0.5ML) 12YO+ PFS 12/31/2023 COVID-19 vaccine (Pfizer-Bio NTech 30mcg/0.3mL) 12YO+ WESTLEY-SUCROSE PF, MDV 05/07/2022 [...] complications to colon CA screening, thyroid dz~father: nov @ 87, h/o [place] in 50s, HTN~grprs: unknown~sibs: HTN~kids: A\T\W Cancer-breast [...] ushed or yelled at (see row info)? No 05/11/2025 Interpersonal Safety Abuse 12 - 18 Not on file 05/11/2025 Interpersonal Safety Ambulatory Vulnerability No t on file 05/11/2025 Utilities Answer Date Recorded Do you have trouble paying f or utilities (for example, heat, electricity, water, phone)? 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 Gender Identity Not on file Sexual Orientation [...] Sign Reading Time Taken Comments Blood Pressure 171/81 05/11/2025 5:38 PM CDT Pulse 62 05/11/2025 5:38 PM CDT Temperature 36.4 C (97.6 F) 05/11/2025 2:54 PM CDT Respiratory Rate 18 05/11/2025 5:38 PM CDT Oxygen Saturation 97% 05/11/2025 5:38 PM CDT Inhaled Oxygen Concentration - - Weight 53.5 kg (118 lb) 05/11/2025 2:52 PM CDT Height 147.3 cm (4' 10) 05/11/2025 2:52 PM CDT Body Mass Index 24.66 05/11/2025 2:52 PM CDT Plan of Treatment Upcoming Encounters Date Type Department Care Team (Late st Contact Info) Description 05/14/2025 11:00 AM CDT Procedure Only [facility] [address] [place] [address] Brenden Lakhani MD [address] [place] [address] 05/17/2025 2:25 PM CDT Office Visit [facility] [address] [place] [address] Christine Kirk DO [address] [place] [address] 05/27/2025 9:45 AM CDT Orders Only [facility] [address] [place] [address] Lab, Farm 06/11/2025 1:00 PM CDT Office Visit [facility] [address] [facility] [address] [place] [address] Dixie Thomas MD [address] [facility] [address] [place] [address] 07/26/2025 10:00 AM CDT Orders Only [facility] [address] [place] [address] Lab, Farm 07/30/2025 11:30 AM CDT Office Visit [facility] [address] [place] [address] Angelina Medina, GRETCHEN [address] [place] [address] 08/18/2025 11:15 AM CDT Office Visit [facility] [address] [place] [address] Alberto Akins MD [facility] [address] [place], [place] [id number] Health Maintenance Due Date Last Done Comments [...] Tdap Discontinued Medical Devices Implanted Type Area Case Managers Device Identifier Shelf Expiration Date Model / Serial / Lot Fabric Cardiovasc 0.3x3in Leana [id number] - [id number] Implanted:Qty: 1 on 08/23/2010 at [facility] Right: Carotid Artery [employer] 04/01/2015 [id number] / / [id number] Iol Ciales Preload 1 Pc Clear 6mm 19.00 Diopter Tecnis - [id number] Implanted:Qty: 1 on 04/16/2024 by Malik Currie MD at [facility] Left: Eye [employer] 10/28/2026 [id number] / [id number] / NA Procedures Procedure Name Priority Date/Time Associated Diagnosis Comments UA W/ SEDIMENT EXAM REFLEXED PER CRITERIA Today 05/11/2025 2:[address] ABDOMEN PELVIS UROGRAM WWO PERRY 05/10/2025 12:41 PM CDT Lower urinary tract symptoms (LUTS) Gross hematuria BASIC METABOLIC PANEL Routine 05/07/2025 4:13 PM CDT Lower urinary tract symptoms (LUTS) CBC W PLT NO DIFF Routine 05/07/2025 4:1 3 PM CDT Lower urinary tract symptoms (LUTS) CREATININE,ISTAT Routine 05/07/2025 4:10 PM CDT Lower urinary tract symptoms (LUTS) URINALYSIS MACROSCOPIC - [facility] ONLY POC DIP ([facility]) Routine 05/07/2025 3:06 PM CDT Lower urinary tract symptoms (LUTS) URINALYSIS MICROSCOPIC Routine 05/07/2025 3:05 PM CDT Lower urinary tract symptoms (LUTS) URINE CULTURE Routine 05/07/2025 3:05 PM CDT Lower urinary tract symptoms (LUTS) US CAROTID DUPLEX BILATERAL Routine 04/14/2025 10:02 [...] Recently Relevant to Health Maintenance Results * (ABNORMAL) UA W/ SEDIMENT EXAM REFLEXED PER CRITERIA (05/11/2025 2:49 PM CDT) COLOR Yellow Yellow Color 05/11/2025 3:16 PM CDT [facility] CLARITY Clear Clear Clarity 05/11/2025 3:16 PM CDT [facility] SPECIFIC GRAVITY,URINE <=1.005(A) 1.010, 1.015, 1.020, 1.025 05/11/2025 3:16 PM CDT [facility] PH,URINE 5.5 6.0, 7.0, 8.0, 5.5, 6.5, 7.5, 8.5 05/11/2025 3:16 PM CDT [facility] UROBILINOGEN, QUALITATIVE Normal Normal EU/dl 05/11/2025 3:16 PM CDT [facility] PROTEIN, URINE Negative Negative mg/dL 05/11/2025 3:16 PM CDT [facility] GLUCOSE, URINE Negative Negative mg/dL 05/11/2025 3:16 PM CDT [facility] KETONES,URINE Negative Negative mg/dL 05/11/2025 3:16 PM CDT [facility] BILIRUBIN,URI NE Negative Negative 05/11/2025 3:16 PM CDT [facility] OCCULT BLOOD,URINE Negative Negative 05/11/2025 3:16 PM CDT [facility] NITRITE Negative Negative 05/11/2025 3:16 PM CDT [facility] LEUKOCYTE ESTERASE Negative Negative 05/11/2025 3:16 PM CDT [facility] Urine URINE SPECIMEN / Unknown Non-Blood / Unknown 05/11/2025 2:49 PM CDT 05/11/2025 3:12 PM CDT us Carolina Lakhani MD URINE Final Res ult [facility] [place] [address], [place] [phone] * CT ABDOMEN PELVIS UROGRAM WWO (05/10/2025 12:41 PM CDT) Anatomical Region Laterality Modality Abdomen, Pelvis, KIDNEYS, BLADDER Computed Tomography 05/11/2025 7:24 AM CDT Impressions 05/11/2025 7:24 AM CDT 1. No calcified calculus. No obstructive uropathy. No renal cortical mass identified. No filling defect identified within the upper tracts, ureters or bladder as opacified. No specific visible cause for hematuria on this exam. 2. Abdominopelvic lymphadenopathy. Similar to July 14, 2024 but worsened since 2019. Nonspecific findings but could be related to a lymphoproliferative disorder. 3. Other nonacute appearing findings as discussed in the body of the report. Please note that all CT scans at this facility use dose modulation, iterative reconstruction, and/or weight-based dosing when appropriate to reduce radiation dose to as low as reasonably achievable. Dictated by Malik Landa MD @ 05/11/2025 7:24:00 AM (Electronically Signed) Narrative 05/11/2025 7:24 AM CDT For Patients: As a result of the Century Cures Act, medical imaging exams and procedure reports are released immediately into your electronic medical record. You may view this report before your referring provider. If you have questions, please contact your health care provider. INDICATION: Lower urinary tract symptoms. Hematuria. COMPARISON: July 14, 2024 in July 11, 2020 TECHNIQUE: CT examination of the abdomen and pelvis was performed before and after the uneventful intravenous administration of 80 cc of Omnipaque 350. Thin section axial images were obtained from the lung bases through the pubic symphysis. Oral contrast was not administered. Sagittal and coronal reformatted imaging was performed. The study was performed with a noncontrast exam and a delayed post-contrast series as per urogram protocol. Please note that all CT scans at this facility use dose modulation, iterative reconstruction, and/or weight-based dosing when appropriate to reduce radiation dose to as low as reasonably achievable. FINDINGS: LUNG BASES: Basilar opacities are probably due to atelectasis, scarring and minimal interstitial fibrosis.The heart is mildly enlarged the lung bases. Atherosclerotic vascular and valvular calcifications. LIVER/BILIARY SYSTEM:The liver is normal in size and configuration. There is no focal mass and there is no intra- or extra hepatic biliary ductal dilatation.Hepatic steatosis. Normal-appearing gallbladder. ADRENALS: Normal KIDNEYS, URETERS and BLADDER:The kidneys are normal in size. There is no calcified calculus. There is no hydronephrosis or hydroureter. No evidence of obstructive uropathy. No visible renal cortical mass. No filling defect identified within the upper tracts, ureters or bladder as visualized. SPLEEN:Normal appearance. PANCREAS: Appears normal. RETROPERITONEUM and MESENTERY: There is lymphadenopathy. This is most pronounced retrocrural Rodriguez`s also present in the retroperitoneum, mesentery and pelvis. This is fairly similar to July 14, 2024 but worsened when compared to July 11, 2020 . Nonspecific findings but could represent and lymphoproliferative disorder. GASTROINTESTINAL SYSTEM: There is no evidence of diverticulitis, colitis, mechanical obstruction, or appendicitis. The small bowel as visualized appears normal.Diverticulosis. PELVIS: No mass, adenopathy or free fluid. OSSEOUS STRUCTURES and ABDOMINAL WALL: Degenerative changes. No significant abdominal wall defects. What is likely a prominent right inguinal lymph node is unchanged measuring 1.8 centimeters.No significant abdominal wall defect. OTHER: No free fluid or free air. Procedure Note Malik Landa MD - 05/11/2025 For Patients: As a result of the Cures Act, medical imagingexams and procedure reports are released immediately into your electronicmedical record. You may view this report before your referring provider.If you have questions, please contact your health care provider. INDICATION: Lower urinary tract symptoms. Hematuria. COMPARISON: July 14, 2024 in July 11, 2020 TECHNIQUE: CT examination of the abdomen and pelvis was performed before and afterthe uneventful intravenous administration of 80 cc of Omnipaque 350. Thinsection axial images were obtained from the lung bases through the pubicsymphysis. Oral contrast was not administered. Sagittal and coronalreformatted imaging was performed. The study was performed with anoncontrast exam and a delayed post-contrast series as per urogramprotocol. Please note that all CT scans at this facility use dose modulation,iterative reconstruction, and/or weight-based dosing when appropriate toreduce radiation dose to as low as reasonably achievable. FINDINGS: LUNG BASES: Basilar opacities are probably due to atelectasis, scarringand minimal interstitial fibrosis.The heart is mildly enlarged the lungbases. Atherosclerotic vascular and valvular calcifications. LIVER/BILIARY SYSTEM:The liver is normal in size and configuration. Thereis no focal mass and there is no intra- or extra hepatic biliary ductaldilatation.Hepatic steatosis. Normal-appearing gallbladder. ADRENALS: Normal KIDNEYS, URETERS and BLADDER:The kidneys are normal in size. There is nocalcified calculus. There is no hydronephrosis or hydroureter. No evidenceof obstructive uropathy. No visible renal cortical mass. No filling defectidentified within the upper tracts, ureters or bladder as visualized. SPLEEN:Normal appearance. PANCREAS: Appears normal. RETROPERITONEUM and MESENTERY: There is lymphadenopathy. This is mostpronounced retrocrural Rodriguez`s also present in the retroperitoneum,mesentery and pelvis. This is fairly similar to July 14, 2024 butworsened when compared to July 11, 2020 . Nonspecific findings butcould represent and lymphoproliferative disorder. GASTROINTESTINAL SYSTEM: There is no evidence of diverticulitis, colitis,mechanical obstruction, or appendicitis. The small bowel as visualizedappears normal.Diverticulosis. PELVIS: No mass, adenopathy or free fluid. OSSEOUS STRUCTURES and ABDOMINAL WALL: Degenerative changes. Nosignificant abdominal wall defects. What is likely a prominent rightinguinal lymph node is unchanged measuring 1.8 centimeters.No significantabdominal wall defect. OTHER: No free fluid or free air. IMPRESSION: 1. No calcified calculus. No obstructive uropathy. No renal cortical massidentified. No filling defect identified within the upper tracts, uretersor bladder as opacified. No specific visible cause for hematuria on thisexam. 2. Abdominopelvic lymphadenopathy. Similar to July 14, 2024 but worsenedsin2019. Nonspecific findings but could be related to alymphoproliferative disorder. 3. Other nonacute appearing findings as discussed in the body of thereport. Please note that all CT scans at this facility use dose modulation,iterative reconstruction, and/or weight-based dosing when appropriate toreduce radiation dose to as low as reasonably achievable. Dictated by Malik Landa MD @ 05/11/2025 7:24:00 AM (Electronically Signed) us Christine Kirk DO CT Final Resu lt * CBC W PLT NO DIFF (05/07/2025 4:13 PM CDT) WHITE BLOOD CELL COUNT 10.1 3.8 - 10.8 Thousand/u L [facility] RED BLOOD CELL COUNT 4.05 3.80 - 5.10 Million/uL [facility] HEMOGLOBIN 12.2 11.7 - 15.5 g/dL [facility] HEMATOCRIT 36.5 35.0 - 45.0 % [facility] MCV 90.1 80.0 - 100.0 fL [facility] MCH 30.1 27.0 - 33.0 pg [facility] MCHC 33.4 32.0 - 36.0 g/dL [facility] Comment: For adults, a slight decrease in the calculated MCHC value (in the range of 30 to 32 g/dL) is most likely not clinically significant; however, it should be interpreted with caution in correlation with other red cell parameters and the patient's clinical condition. RDW 12.5 11.0 - 15.0 % [facility] PLATELET COUNT 398 140 - 400 Thousand/u L [facility] MPV 10.3 7.5 - 12.5 fL [facility] Blood BLOOD SPECIMEN / Unknown 05/07/2025 4:13 PM CDT 05/07/2025 4:13 PM CDT Christine Kirk DO HEMATOLOGY Final Resu lt [employer] [facility] [address] [place] [address], [facility] [address] [place] [address] * (ABNORMAL) BASIC METABOLIC PANEL (05/07/2025 4:13 PM CDT) Pathologist [facility] GLUCOSE 101(H) 65 - 99 mg/dL [facility] Comment: Fasting reference interval For someone without known diabetes, a glucose value between 100 and 125 mg/dL is consistent with prediabetes and should be confirmed with a follow-up test. UREA NITROGEN (BUN) 12 7 - 25 mg/dL [facility] CREATININE 0.90 0.60 - 0.95 mg/dL [facility] EGFR 64 > OR = 60 mL/min/1. 73m2 [facility] BUN/CREATININE RATIO SEE NOTE: 6 - 22 (calc) [facility] Comment: Not Reported: BUN and Creatinine are within reference range. SODIUM 136 135 - 146 mmol/L [facility] POTASSIUM 4.6 3.5 - 5.3 mmol/L [facility] CHLORIDE 100 98 - 110 mmol/L [facility] CARBON DIOXIDE 27 20 - 32 mmol/L [facility] ELECTROLYTE BALANCE 9 7 - 17 mmol/L (calc) [facility] CALCIUM 9.2 8.6 - 10.4 mg/dL [facility] Blood BLOOD SPECIMEN / Unknown 05/07/2025 4:13 PM CDT 05/07/2025 4:13 PM CDT Christine Nuneser CHEMISTRY Final Resu lt [facility] [address] [place] [address], [place] [phone] [facility] [address] [place] [address] * POCT Creatinine (05/07/2025 4:10 PM CDT) Pathologist [facility] POCT,CREATININ E, ISTAT 1.0 0.6 - 1.3 mg/dL [facility] Blood BLOOD SPECIMEN / Unknown 05/07/2025 4:10 PM CDT 05/07/2025 4:12 PM CDT [facility] CHEMISTRY Final Resu lt Performing Organization Address [facility]/ZIP Co de Phone Number [facility] [address] [place] [address], [place] [phone] [facility] [address] [place] [address] * (ABNORMAL) POCT Urinalysis Dipstick Only [[id number]] (05/07/2025 3:06 PM CDT) [facility] PH 6.0 5.0 - 8.0 [facility] SPECIFIC GRAVITY < OR = 1.005 1.001 - 1.035 [facility] Comment: Specific Ryder values resulted are outside the analytical measurement range of this device. Recommend repeat/additional testing as clinically indicated. GLUCOSE NEGATIVE NEGATIVE [facility] BILIRUBIN NEGATIVE NEGATIVE [facility] KETONES NEGATIVE NEGATIVE [facility] OCCULT BLOOD NEGATIVE NEGATIVE [facility] PROTEIN NEGATIVE NEGATIVE [facility] NITRITE NEGATIVE NEGATIVE [facility] LEUKOCYTE ESTERASE TRACE(A) NEGATIVE [facility] Urine URINE SPECIMEN / Unknown 05/07/2025 3:06 PM CDT 05/07/2025 3:06 PM CDT Christine Alcarazxler DO URINE Final Resu lt Performing Organization Address City/[facility]/ZIP Co de Phone Number [facility] [address] [place] [address], [facility] [address] [place] [address] * (ABNORMAL) URINALYSIS MICROSCOPIC [97309.1] - routine (05/07/2025 3:05 PM CDT) RBC 0-2 0-2, None Seen /HPF 05/07/2025 10:34 PM CDT [facility] WBC 6-10(A) 0-2, 3-5, None Seen /HPF 05/07/2025 10:34 PM CDT [facility] BACTERIA None Seen None Seen, Rare, Few Bacteria/ HPF 05/07/2025 10:34 PM CDT [facility] EPITHELIAL CELLS None Seen None Seen, Few Epi/HPF 05/07/2025 10:34 PM CDT [facility] HYALINE CASTS 0-2 0-2, 3-5 /LPF 05/07/2025 10:34 PM CDT [facility] Urine URINE SPECIMEN / Unknown Non-Blood / Unknown 05/07/2025 3:05 PM CDT 05/07/2025 3:05 PM CDT Christine Kirk DO URINE Final Resu lt [facility] [address] [place] [address], [place] * URINE CULTURE [97739.2] (05/07/2025 3:05 PM CDT) CULTURE No growth (<1,000 CFU/mL) 05/09/2025 4:01 PM CDT [facility] Urine URINE SPECIMEN / Unknown Non-Blood / Unknown 05/07/2025 3:05 PM CDT 05/07/2025 3:05 PM CDT us Christine Kirk DO MICROBIOLOGY Final Resu lt [facility] [address] [place] [address], [place] * US CAROTID DUPLEX BILATERAL (04/14/2025 10:02 AM CDT) Anatomical Region Laterality Modality CAROTID, NECK Ultrasound Impressions 04/15/2025 2:35 PM CDT Stable less than 50 percent narrowing of the cervical ICAs bilaterally. José Miguel Ramires D.O. Neuroradiologist [email or web address] [email or web address]/huma / Narrative 04/15/2025 2:35 PM CDT Table [...] Vertebral Artery Right Left Antegrade x x Cassherve Bradysofy DO US Final Result * OCCULT BLOOD IFOBT STOOL (03/31/2025 11:24 AM CDT) STOOL BLOOD ,IFOBT Negative Negative 04/07/2025 5:18 PM CDT [facility] Stool STOOL SPECIMEN / Unknown Non-Blood / Unknown 03/31/2025 11:24 AM CDT 04/07/2025 11:24 AM CDT [facility] Final Result Performing Organization Address City/State/[facility] Co de Phone Number [facility] [address] [place] [address], * XR SPINE CERVICAL 3 VIEWS (03/30/2025 [...] CDT) HEMOGLOBIN 11.9 11.7 - 15.5 g/dL [facility] Blood BLOOD SPECIMEN / Unknown 03/30/2025 2:16 PM CDT 03/30/2025 2:17 PM CDT Pepe Lange DO HEMATOLOGY Final Result [employer] [facility] [address] [place] [address], [facility] [address] [place] [address] * (ABNORMAL) XR DXA BONE DENSITY 2 SITES AXIAL (08/08/2017 11:25 AM CDT) Anatomical Region Laterality Modality Spine, HIPS, HIPL, HIPR Other Narrative 08/14/2017 7:40 AM CDT Please see scanned document for results of this study. 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
--- NOTE | 2025-05-12 20:58 | ED.GENADULT ---
HPI - General Adult General Date Seen: 05/12/25 Chief complaint: Headache/Migraine Stated complaint: neck pain Time Seen by Provider: 05/12/25 20:58 History of Present Illness HPI narrative: 84-year-old female on apixaban for atrial fibrillation, with recent UTI,. She presents to the ER [facility] for evaluation of headache and neck pain. Headache began at about 6:00 p.m. today. No head injury. She does have chronic neck pain but her chronic pain is worse today. She has been trying to treat her headache with Tylenol and heating pad on her neck. She does have a history migraine headaches but has not really had a migraine for several years. 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 She does deal with a lot of neck pain. She also tends to be anxious (per her family members) and often over thinks things in his easily stressed out and overwhelmed. She has multiple stressors lately including recent hematuria with UTI. She is also going through move which is very stressful for her. Her symptoms began at about 6:00 p.m. [facility] when she had some bad neck pain and then also some bad left-sided headache. The headache was quite intense in nature and worse than her previous history of migraines. No other symptoms with this. No vision loss or blurry vision or double vision. No hearing change. Perhaps a little bit dizzy but that can be normal for her sometimes. No focal numbness or weakness or tingling in her arms or legs. No facial droop. No slurred speech or dysarthria. Now that she has arrived here in the ER, after being roomed in the ER stay 2 she says her headache and neck pain or essentially resolved. I had ordered some pain meds for her at that time nurses notified me of her triage because of her headache, but the headache result prior to the nurses being able to administer the meds. Per medical record was seen in the ER 1 week ago on 05/05 with complaint of hematuria. Was diagnosed with UTI. Given IM Rocephin and put on Macrobid for [address] abd pelvis: FINDINGS: Lower chest: Two 5 millimeter right lower lobe nodules, unchanged compared to prior studies dating back to 2019. No additional routine follow-up imaging is recommended. Liver: Unremarkable. Normal in size and attenuation. No suspicious masses. Gallbladder and bile ducts: Unremarkable. No stones or inflammation. No biliary dilatation. Pancreas: Unremarkable. No mass or inflammation. Spleen: Unremarkable. Normal in size. No masses. Adrenal glands: Unremarkable. No nodules. Kidneys: Unremarkable. No suspicious masses, stones, or hydronephrosis. GI tract: Colonic diverticulosis. No diverticulitis or colitis. Small gastric hiatus hernia. Unremarkable small bowel. No bowel obstruction. Normal appendix. Vasculature: Moderate atherosclerosis of the abdominal aorta and branch vessels. No aneurysm. Mesenteric arteries are patent. Lymph nodes: Small retroperitoneal and mesenteric lymph nodes, unchanged compared to the previous study. No new lymphadenopathy. Peritoneum/Abdominal Wall: Unremarkable. No sign of mass or infiltration. No free air or significant free fluid. Pelvis: Unremarkable. Bones: Degenerative spondylosis of the lower thoracic and lumbar spine. No fracture or suspicious bone lesion. IMPRESSION: 1. Colonic diverticulosis. 2. Small gastric hiatus hernia. 3. Moderate atherosclerosis of the abdominal aorta and branch vessels. 4. No acute abdominal pelvic process. Related Data Home Medications ?Medication ?Instructions ?Recorded ?Confirmed amitriptyline 10 mg tablet mg PO 10/23/24 apixaban 2.5 mg tablet (Eliquis) 2.5 mg PO BID 10/23/24 05/05/25 atenolol 25 mg tablet 25 mg PO DAILY 10/23/24 05/05/25 atenolol 50 mg tablet 50 mg PO DAILY 10/23/24 05/05/25 calcium 600 mg capsule 600 mg PO DAILY 10/23/24 05/05/25 cholecalciferol (vitamin D3) 50 2,000 unit PO DAILY 10/23/24 05/05/25 mcg (2,000 unit) capsule famotidine 20 mg tablet 20 mg PO DAILY 10/23/24 05/05/25 levothyroxine 75 mcg tablet 75 mcg PO DAILY 10/23/24 05/05/25 losartan 25 mg tablet 12.5 mg PO BID 10/23/24 05/05/25 [id number]-rjk-okav-FA-vit K-lut PO 10/23/24 omeprazole 20 mg capsule,delayed 20 mg PO DAILY 10/23/24 05/05/25 release psyllium PO 10/23/24 valsartan 40 mg tablet 40 mg PO DAILY 05/05/25 05/05/25 Previous Rx's ?Medication ?Instructions ?Recorded nitrofurantoin 100 mg PO Q12H 7 days #14 caps 05/05/25 monohydrate/macrocrystals 100 mg capsule (Macrobid) Allergies Allergy/AdvReac Type Severity Reaction Status Date / Time morphine AdvReac Mild Hallucinati Verified 05/12/25 22:10 ng PFSH [facility] Social History Smoking Status: Never smoker Do you use any of these nicotine containing products: None Second hand tobacco smoke exposure: No How often do you have a drink containing alcohol: never How often do you have six or more drinks on one occasion: Never AUDIT-C Alcohol total score: 0 Non-prescribed substance use: denies use service: No Exam Narrative: Exam Narrative: Constitutional: Appears well-developed and well-nourished. Alert. Conversant. Non toxic. HENT: Head: Atraumatic. No depressed skull fracture, Raccoon Eyes, Sepulveda's sign, or hemotympanum. Face normal. TMs normal Nose: Nose normal. Eyes: Conjunctivae normal. EOM normal. Pupils equal, round, and reactive to light. No scleral icterus. Neck: Normal range of motion. Neck supple. No tracheal deviation present. Cardiovascular: Normal rate, regular rhythm. No gallop. No friction rub. No murmur heard. Symmetric radial artery pulses Pulmonary/Chest: Effort normal. No stridor. No respiratory distress. No wheezes. No rales. No rhonchi . Abdominal: Soft. No distension. No mass. No tenderness. No rebound. No guarding. Musculoskeletal: RUE: Normal range of motion. No tenderness. No deformity LUE: Normal range of motion. No tenderness. No deformity RLE: Normal range of motion. No edema. No tenderness. No deformity LLE: Normal range of motion. No edema. No tenderness. No deformity Neurological: Mental status normal. Attention normal. Alert and oriented x3. GCS 15. Memory normal. Speech fluent. Cognition normal. Cranial Nerves intact II-XII except I did not formally test gag or visual acuity. EOMI. Palate elevates symmetrically and tongue protrudes in the midline. Strength: 5/5 trapezius on the right and left 5/5 deltoid on the right and left 5/5 biceps on the right and left 5/5 triceps on the right and left 5/5 agronomy research manager on the right and left 5/5 thumb opposition on the right and left 5/5 finger abduction on the right and left 5/5 hip flexors (L3) on the right and left 5/5 quadriceps (L4) on the right and left 5/5 tibialis anterior on the right and left 5/5 EHL (L5) on the right and left 5/5 gastrocnemius (S1) on the right and left 5/5 hamstring on the right and left Sensation intact to light touch in both upper extremities (C4-T1) Sensation intact to light touch in Both lower extremities (L4-S1). Finger to nose and coordination normal. Able to stand at the bedside. She uses nurse's assistance to get back and forth to the bathroom. He is able to bed herself and move on and off of the toilet unassisted. Skin: Skin is warm and dry. No rash noted. No pallor. Normal capillary refill. Psychiatric: Normal mood. Normal affect. Const: Vital Signs, click to edit/add: Vital Signs - 24 hr 05/12/25 20:54 05/12/25 21:16 05/12/25 21:17 Temperature 98.0 F Pulse Rate Pulse Rate [Right Pulse Oximeter] 110 H Respiratory Rate 16 14 14 Blood Pressure 194/109 H Blood Pressure [Ri ght Upper Arm] 199/103 H Pulse Oximetry 99 Oxygen Delivery Me thod Room Air 05/12/25 21:35 05/12/25 21:52 05/12/25 22:22 Temperature Pulse Rate Pulse Rate [Right Pulse Oximeter] Respiratory Rate 12 12 25 H Blood Pressure Blood Pressure [Ri ght Upper Arm] Pulse Oximetry Oxygen Delivery Me thod 05/12/25 22:25 05/12/25 22:33 05/12/25 22:45 Temperature Pulse Rate 74 Pulse Rate [Right Pulse Oximeter] Respiratory Rate 7 L 12 21 Blood Pressure 191/90 H Blood Pressure [Ri ght Upper Arm] Pulse Oximetry 97 Oxygen Delivery Me thod 05/12/25 23:01 05/12/25 23:04 05/12/25 23:05 Temperature Pulse Rate 72 73 Pulse Rate [Right Pulse Oximeter] Respiratory Rate 25 H 14 21 Blood Pressure 175/84 H Blood Pressure [Ri ght Upper Arm] Pulse Oximetry 100 96 Oxygen Delivery Me thod 05/12/25 23:15 05/12/25 23:35 05/12/25 23:38 Temperature Pulse Rate 69 84 Pulse Rate [Right Pulse Oximeter] Respiratory Rate 25 H 26 H Blood Pressure 189/97 H Blood Pressure [Ri ght Upper Arm] Pulse Oximetry 99 85 L Oxygen Delivery Me thod 05/12/25 23:45 05/13/25 00:00 05/13/25 00:02 Temperature Pulse Rate 70 73 73 Pulse Rate [Right Pulse Oximeter] Respiratory Rate 21 13 Blood Pressure 185/88 H Blood Pressure [Ri ght Upper Arm] Pulse Oximetry 100 98 99 Oxygen Delivery Me thod 05/13/25 00:02 05/13/25 00:02 Temperature Pulse Rate 73 73 Pulse Rate [Right Pulse Oximeter] Respiratory Rate 13 13 Blood Pressure 185/88 H 185/88 H Blood Pressure [Ri ght Upper Arm] Pulse Oximetry 99 99 Oxygen Delivery Me thod Course Vital Signs Vital signs: Initial Vital Signs Temperature 98.0 F 05/12/25 20:54 Temperature Source Temporal Artery Scan 05/12/25 20:54 Pulse Rate 110 H 05/12/25 20:54 Respiratory Rate 16 05/12/25 20:54 Blood Pressure 199/103 H 05/12/25 20:54 Blood Pressure Mean 135 H 05/12/25 20:54 Blood Pressure Position Sitting 05/12/25 20:54 Pulse Oximetry 99 05/12/25 20:54 Oxygen Delivery Method Room Air 05/12/25 20:54 Vital Signs Temperature 98.0 F 05/12/25 20:54 Pulse Rate 110 H 05/12/25 20:54 Respiratory Rate 16 05/12/25 20:54 Blood Pressure 199/103 H 05/12/25 20:54 Pulse Oximetry 99 05/12/25 20:54 Oxygen Delivery Method Room Air 05/12/25 20:54 Temperature 98.0 F 05/12/25 20:54 Pulse Rate 73 05/13/25 00:02 Respiratory Rate 13 05/13/25 00:02 Blood Pressure 185/88 H 05/13/25 00:02 Pulse Oximetry 99 05/13/25 00:02 Oxygen Delivery Method Room Air 05/12/25 20:54 Medications Administered Medications: Discontinued Medications Generic Name Dose Route Start Last Admin Trade Name Ahsan PRN Reason Stop Dose Admin Fentanyl 25 mcg 05/12/25 21:01 05/12/25 23:10 Fentanyl 100 Mcg/2 Ml Inj IVP 05/12/25 21:02 Not Given ONCE ONE Sodium Chloride 1,000 mls @ 1,000 mls/hr 05/12/25 21:15 05/13/25 00:10 0.9 % Sodium Chloride 1000 Ml IV 05/12/25 22:14 Infused .Q1H NAEEM Infusion Ondansetron HCl 4 mg 05/12/25 21:01 05/12/25 21:26 Ondansetron 2 Mg/Ml Inj IVP 05/12/25 21:02 4 mg ONCE ONE Administration Medical Decision Making MDM Narrative Medical decision making narrative: Ths patient presents with a headache and neck pain. It sounds like her headache was fairly abrupt in onset tonight at about 6:00 p.m.. Headache resolved spontaneously right after she arrived here in the ER.. A broad differential diagnosis was considered including tension, migraine, analgesic rebound, occipital neuralgia, etc. Other less common but serious causes considered included meningitis, encephalitis, subarachnoid bleed, stroke, tumor, etc. given the severity of the headache and how quickly it came on we did consider possible vascular phenomenon such as subarachnoid, cervical artery dissection. CT head and CT angiogram are obtained and are normal. The patient has no signs of serious headache etiologies at this point. No lumbar puncture for SAH. In fact, LP would be relatively contraindicated by her Eliquis use. Other labs are reassuring. Repeat urinalysis today shows resolution of the previous abnormalities noted last week. Patient's questions were answered. She and her family are comfortable plan for discharge home. Supportive outpatient management is therefore indicated. Headache precautions given for home. Lab Data Labs: Lab Results 05/12/25 05/12/25 05/12/25 Range/Units 21:25 21:37 Unknown WBC 7.33 (4.50-11.00) K/uL RBC 3.96 L (4.00-5.20) m/uL Hgb 11.8 L (12.0-16.0) gm/dL Hct 35.7 (33.0-51.0) % MCV 90 (80-100) fL MCH 30 (26-34) pg MCHC 33 (32-36) gm/dL RDW Coeff of Pam 13.0 (11.5-15.5) % Plt Count 210 (140-440) K/uL Neut % (Auto) 63.9 (42.0-72.0) % Lymph % (Auto) 23.1 (20-44) % [place] % (Auto) 9.3 (0.0-11.0) % Eos % (Auto) 3.1 (0.0-7.0) % Baso % (Auto) 0.5 (0.0-3.0) % Neut # (Auto) 4.68 (1.7-7.0) K/uL Lymph # (Auto) 1.69 (0.90-2.90) K/uL [place] # (Auto) 0.70 (0.00-0.90) K/UL Eos # (Auto) 0.23 (0.00-0.50) K/uL Baso # (Auto) 0.04 (0.00-0.30) K/uL Abs Immat Gran (auto) 0.01 (0.00-0.30) K/uL Imm/Tot Granulo (auto) 0.1 % Sodium 132 L (135-149) mmol/L Potassium 3.9 (3.6-5.1) mmol/L Chloride 96 (96-114) mmol/L Carbon Dioxide 26 (20-32) mmol/L Anion Gap 10 (7-15) mEq/L BUN 16 (7-30) mg/dL Creatinine 0.9 (0.5-1.5) mg/dL Estimated Creat Clear 36.65 Estimated GFR 64 ml/min Glucose 97 (60-115) mg/dL Calcium 9.1 (8.4-10.6) mg/dL Urine Color Yellow (Yellow) Urine Appearance Clear (Clear) Urine pH 6.5 (5.0-8.5) Ur Specific [place] <= 1.005 (1.000-1.030) Urine Protein Negative (Negative) Urine Glucose (UA) Negative (Negative) Urine Ketones Negative (Negative) Urine Blood Trace-intact A (Negative) Urine Nitrite Negative (Negative) Urine Bilirubin Negative (Negative) Urine Urobilinogen 0.2 (0.2-1.0) Ur Leukocyte Esterase Trace A (Negative) Urine RBC 0-2 (0-2) Urine WBC 0-2 (0-5) Ur Squamous Epith Cells Few (None-Few) Urine Bacteria Few A (None) Urine Mucus Few A (None) POC Creatinine 1.0 (0.6-1.3) mg/dl Imaging Data CT scan - head: Attestation: I have reviewed the pertinent imaging results. Radiologist's impression: IMPRESSION: 1. No evidence of acute infarction, intracranial hemorrhage, or mass-effect seen. CTA head and neck: Attestation: I have reviewed the pertinent imaging results. Radiologist's impression: Preliminary Report: PRELIMINARY IMPRESSIONS: 1. The [place] of [place] is unremarkable with no significant stenosis, occlusion, or aneurysm identified. 2. Mild calcific plaque noted in the carotid bulbs. The neck vessels shows no evidence of dissection, significant stenosis in the common or internal carotid arteries, vertebral arteries, or visualized great vessels of the chest. Discharge Plan Discharge Clinical Impression: Headache, Acute neck pain Patient Disposition: Home, Self-Care Condition: Stable Instructions: Acute Headache (DC) Additional Instructions: Please come back to the ER right away if you have any concerns especially recurring headache, dizziness, neck pain, fever, or any other problems. Please continue on your regular medications and recheck with your regular doctor within the next few days. Prescriptions: No Action atenolol 25 mg tablet 25 mg PO DAILY levothyroxine 75 mcg tablet 75 mcg PO DAILY famotidine 20 mg tablet 20 mg PO DAILY amitriptyline 10 mg tablet PO losartan 25 mg tablet 12.5 mg PO BID omeprazole 20 mg capsule,delayed release(DR/EC) 20 mg PO DAILY atenolol 50 mg tablet 50 mg PO DAILY Eliquis 2.5 mg tablet 2.5 mg PO BID cholecalciferol (vitamin D3) 50 mcg (2,000 unit) capsule 2,000 unit PO DAILY qsvkvibx-dvh-hdtt-FA-vit K-lut [Centrum Silver Women] PO calcium 600 mg capsule 600 mg PO DAILY psyllium [Metamucil (sugar)] PO valsartan 40 mg tablet 40 mg PO DAILY nitrofurantoin monohyd/m-cryst [Macrobid] 100 mg capsule 100 mg PO Q12H 7 Days Qty: 14 0RF Rx Instructions: must administer with a meal/food Follow Up/Referrals: PEPE ZARAGOZA DO [Primary Care Provider, Family Practice] Stand Alone Forms: MyHealth Info Instructions
--- NOTE | 2025-05-12 21:01 | CRLHL7_ITS ---
For Patients: As a result of the Century Cures Act, medical imaging exams and procedure reports are released immediately into your electronic medical record. You may view this report before your referring provider. If you have questions, please contact your health care provider. INDICATION: Headache, neck pain, patient on apixaban. No trauma TECHNIQUE: CT Head without i.v. contrast. Coronal and sagittal reformats were obtained. COMPARISON: 10/16/2019 FINDINGS: CSF space: Unremarkable for age. Brain: No evidence of mass, acute infarction or hemorrhage is seen. No mass-effect or midline shift is seen. Mild diffuse cortical atrophy is noted. The brain parenchyma is otherwise normal in appearance with preservation of the dueñas-white matter junction. Calvarium: The visualized paranasal sinuses are well aerated. The mastoid air cells are clear. The visualized orbits are grossly unremarkable. The patient is status post prior left cataract removal. The calvarium is unremarkable in appearance with no fractures identified. IMPRESSION: 1. No evidence of acute infarction, intracranial hemorrhage, or mass-effect seen. Please note that all CT scans at this facility use dose modulation, iterative reconstruction, and/or weight-based dosing when appropriate to reduce radiation dose to as low as reasonably achievable. Dictated by: Torsten Alan MD @ 05/12/2025 22:31:00 (Electronically Signed)
--- NOTE | 2025-05-12 21:02 | CRLHL7_ITS ---
For Patients: As a result of the Century Cures Act, medical imaging exams and procedure reports are released immediately into your electronic medical record. You may view this report before your referring provider. If you have questions, please contact your health care provider. INDICATION: Headache, neck pain. TECHNIQUE: CTA head with contrast bolus tracking, 3D angiographic rendering using maximum intensity projection (MIP) and images permanently archived. FINDINGS: There is normal opacification of the intracranial vasculature. There is no large vessel occlusion. No aneurysm is identified. IMPRESSION: No acute intracranial abnormality at CTA. Please note that all CT scans at this facility use dose modulation, iterative reconstruction, and/or weight-based dosing when appropriate to reduce radiation dose to as low as reasonably achievable. Dictated by Herbert Fritz MD @ 05/13/2025 11:20:35 AM (Electronically Signed)
--- NOTE | 2025-05-12 21:02 | CRLHL7_ITS ---
For Patients: As a result of the Century Cures Act, medical imaging exams and procedure reports are released immediately into your electronic medical record. You may view this report before your referring provider. If you have questions, please contact your health care provider. INDICATION: Headache, neck pain. TECHNIQUE: CTA neck with contrast bolus tracking, 3D angiographic rendering using maximum intensity projection (MIP) and images permanently archived. FINDINGS: There is carotid atherosclerosis bilaterally. There is a large atherosclerotic plaque in the proximal right ICA with a large ulcerated crater measuring approximately 12 mm. There is no significant carotid artery stenosis or dissection. There is no significant vertebral artery stenosis or dissection. The soft tissues of the neck are within normal limits. Degenerative changes are noted in the cervical spine. IMPRESSION: Large ulcerated atherosclerotic plaque in the proximal right ICA. No significant carotid or vertebral artery stenosis or dissection. Please note that all CT scans at this facility use dose modulation, iterative reconstruction, and/or weight-based dosing when appropriate to reduce radiation dose to as low as reasonably achievable. Dictated by Herbert Fritz MD @ 05/13/2025 11:24:34 AM (Electronically Signed)
[2025-05-12] MEDS: ONDANSETRON 2 MG/ML inj 4 MG IVP (21:26)
[2025-05-12] MEDS: 0.9 % SODIUM CHLORIDE 1000 ml 1,000 ML IV (21:26)
[2025-05-12 21:54] LABS: Basophils Absolute Auto 0.04 K/uL (0.00-0.30); Basophils Percent Auto 0.5 % (0.0-3.0); Eosinophils Absolute Auto 0.23 K/uL (0.00-0.50); Eosinophils Percent Auto 3.1 % (0.0-7.0); Hematocrit 35.7 % (33.0-51.0); Hemoglobin* 11.8 gm/dL (12.0-16.0); Immature Granulocytes Abs Auto 0.01 K/uL (0.00-0.30); Immature Granulocytes Pct Auto 0.1 %; Lymphocytes Absolute Auto 1.69 K/uL (0.90-2.90); Lymphocytes Percent Auto 23.1 % (20-44); Mean Corpuscular HGB Conc 33 gm/dL (32-36); Mean Corpuscular Hemoglobin 30 pg (26-34); Mean Corpuscular Volume 90 fL (80-100); Monocytes Percent Auto 9.3 % (0.0-11.0); Neutrophils Absolute Auto 4.68 K/uL (1.7-7.0); Neutrophils Percent Auto 63.9 % (42.0-72.0); Platelet Count* 210 K/uL (140-440); Red Blood Count 3.96 m/uL (4.00-5.20); White Blood Count* 7.33 K/uL (4.50-11.00)
[2025-05-12 21:55] LABS: Chloride* 96 mmol/L (96-114); Potassium* 3.9 mmol/L (3.6-5.1); Sodium* 132 mmol/L (135-149)
[2025-05-12 21:56] LABS: Appearance Urine Clear (Clear); Bilirubin Urine Negative (Negative); Blood Urine Trace-intact (Negative); Color Urine Yellow (Yellow); Glucose Urine Negative (Negative); Ketones Urine Negative (Negative); Leukocyte Esterase Urine Trace (Negative); Nitrite Urine Negative (Negative); Protein Urine Negative (Negative); Specific Gravity Urine <= 1.005 (1.000-1.030); Urobilinogen Urine 0.2 (0.2-1.0); pH Urine 6.5 (5.0-8.5)
[2025-05-12 21:57] LABS: Slide Review Reflex No
[2025-05-12 21:58] LABS: Anion Gap 10 mEq/L (7-15); Blood Urea Nitrogen* 16 mg/dL (7-30); Carbon Dioxide* 26 mmol/L (20-32); Creatinine* 0.9 mg/dL (0.5-1.5); Est. Creatinine Clearance* 36.65; Estimated Glomerular Filt Rate 64 ml/min
[2025-05-12 21:59] LABS: Calcium* 9.1 mg/dL (8.4-10.6); Glucose* 97 mg/dL (60-115)
[2025-05-12 22:03] LABS: Bacteria Urine Few; Mucus Urine Few; RBC Urine 0-2 (0-2); Squamous Epithelial Cell Urine Few (None-Few); WBC Urine 0-2 (0-5)
[2025-05-13] VITALS: PULSE 73; RESP 21; O2SAT 98
[2025-05-13 00:02] VITALS: BP 185/88; PULSE 73; RESP 13; O2SAT 99
== END 2025-05-13 00:20 | disposition home or self-care (01) ==
PROVIDERS: Emergency Provider Emergency Medicine; PCP Student in an Organized Health Care Education/Training Program
DX: R10.84 Generalized abdominal pain (principal)
CPT/HCPCS: 36415; 70450; 70496; 70498; 80048; 81001; 82565; 85025; 87086; 93005; 96374; 99283; 99284; 99285; J2405; J7030; Q9967

== ENCOUNTER 2025-05-23 18:21 | Emergency (ER) | payer MEDICARE, SELFPAY ==
--- OUTSIDE RECORDS SUMMARY | 2007-07-09 13:23 | XMS_ITS | Continuity of Care Document ---
Author Organization [facility] Address [address] [address] [place] [address] Phone Care Team Providers Care Wire Setter Name Role Phone Lake THAPA, Luis Unavailable Unavailable Procedures Procedure Date Init Inpt Cons New/est [facility] 7 Advance Directives Directive Yes / No Effective Date File Name No Information Encounters Encounter Description Practice Location Reason(s) For Visit Diagnoses Date Provider Providers Copied on Encounter Init Inpt Cons New[facility], [address] [address], [place], [place], [id number], tel:[phone] [facility] No Information Lake THAPA Luis. [address] [address], [place], [place], [id number], [place]. tel:[phone] Referring Provider: Jeanne Evans MD [place], [address] [place], [address]. tel:[phone] Family History Family Member Type Diagnosis Age At Onset No Information Payers Payer name Insurance type Covered constitution party ID Authoriza tion(s) No Information Social History [...]
--- OUTSIDE RECORDS SUMMARY | 2007-07-09 13:23 | XMS_ITS | Continuity of Care Document ---
Author Organization [facility] Address [address] [address] [place] [address] Phone Care Team Providers Care Captain Cannery Tender Name Role Phone Lake THAPA, Luis Unavailable Unavailable Procedures Procedure Date Init Inpt Cons New/est [facility] 7 Advance Directives Directive Yes / No Effective Date File Name No Information Encounters Encounter Description Practice Location Reason(s) For Visit Diagnoses Date Provider Providers Copied on Encounter Init Inpt Cons New[facility], [address] [address], [place], [place], [id number], tel:[phone] [facility] No Information Lake THAPA Luis. [address] [address], [place], [place], [id number], [place]. tel:[phone] Referring Provider: Jeanne Evans MD [place], [address] [facility] [place], [address]. tel:[phone] Family History Family Member Type Diagnosis Age At Onset No Information Payers Payer name Insurance type Covered alliance party ID Authoriza tion(s) No Information Social [...]
[2025-05-23] VITALS (12 sets, daily range): BP systolic 163–181; BP diastolic 71–84; PULSE 73–109; RESP 10–24; TEMP 36.9; O2SAT 96–100; BMI 24.7
--- OUTSIDE RECORDS SUMMARY | 2025-05-23 18:23 | XMS_ITS | Clinical Summary ---
Author Organization [facility] Address [address] [place] [address] Care Team Providers Care Aquacultural Worker Supervisor Name Role Phone Bruno Howard MD Unavailable [phone] Leland Whaley MD Unavailable Angelina Medina NP Unavailable [phone] Christine Kirk DO Primary Care Provider [phone] Allergies Active Allergy Reactions Criticality Noted Date [...] 0.4 gram cap Take by mouth. 0 11/12/202 0 Active fexofenadine (ANABEL) 180 mg tabletIndications: [...] valsartan 40 mg tabletIndications: Resistant hypertension Take 1 Tablet (40 mg) by mouth once daily. Take in addition to 80 mg tablet for total daily dose of 120 mg. 90 Tablet 5 Active valsartan 80 mg tabletIndications: Resistant hypertension Take 1 Tablet (80 mg) by mouth once daily. Take in addition to 40 mg tablet for total daily dose of 120 mg. 90 Tablet 5 Active valsartan (DIOVAN) 40 mg tabletIndications: Resistant hypertension Take 1 Tablet (40 mg) by mouth once daily. 90 Tablet 3 5 025 Discontin ued(*Medi cation adjustmen t) amLODIPine (NORVASC) 2.5 mg tabletIndications: Resistant hypertension Take 2 Tablets (5 mg) by mouth once daily. 180 Tablet 5 025 Discontin ued(*Med complete/ Regimen complete/ Level of care change) valsartan 40 mg tabletIndications: Resistant hypertension Take 2 Tablets (80 mg) by mouth once daily. 5 025 Discontin ued(Reord er (E-cancel not sent)) nitrofurantoin macrocrystals/mono hydrate 100 mg capsule Take 100 mg by mouth two times daily. 5 025 Discontin ued(*Elva ent states no longer taking) cephalexin 500 mg capsuleIndications :Lower urinary tract symptoms (LUTS) Take 1 Capsule (500 mg) by mouth two times daily for 7 days. 14 Capsule 5 025 Discontin ued(*Elva ent states no longer taking) valsartan 40 mg tabletIndications: Resistant hypertension Take 3 Tablets (120 mg) by mouth once daily. 90 Tablet 1 5 025 Discontin ued(*Medi cation adjustmen t) Active Problems Problem Noted Date Diagnosed Date Mitral valve insufficiency 05/17/2025 Aortic valve sclerosis 05/17/2025 Resistant hypertension 05/17/2025 Follicular lymphoma grade i, lymph nodes of [...] (06/29/2024): Documented on 08/27/2022 by PEPE LANGE 05/01/2018 Chronic pain of left knee 12/13/2017 [...] EGD. Follicular lymphoma. Surgery January 2016 at [facility] for right side of neck. EGD 09/2019 [...] Encounters Date Type Department Care Team Description 05/20/[address] [address] Christine Kirk, Prior Authorization (valsartan 40 mg tablet - PA NOT NEEDED) 05/20/2025 Orders Only [address] [address] Christine Kirk, DO <No scans attached> 05/19/2025 2:50 PM CDT Office Visit [address] [address] Christine Kirk, Follow Up (Blood pressure) 05/19/2025 Nurse Triage [address] [address] Christine Kirk, DO Fatigue 05/19/2025 Travel 05/18/[address] [address] Christine Kirk, Referral Clarification 05/17/2025 2:25 PM CDT Office Visit [address] [address] Christine Kirk, ER Follow up; Establish Care (Would like to switch patient care provider to Dr. Kirk ) 05/16/2025 Travel 05/14/2025 11:00 AM CDT Procedure Only [facility] [address] [place] [address] Brenden Lakhani MD Procedure (cystoscopy) 05/14/2025 Travel 05/12/2025 Orders Only [facility] Scanner 1 scan: (1-Ord) [place], CT ANGIO NECK, 05/12/2025 05/12/2025 Orders Only [facility] Scanner 1 scan: (1-Ord) [facility], CT ANGIO HEAD, 05/12/2025 05/12/2025 Orders Only [facility] Scanner 1 scan: (1-Ord) [facility] CT HEAD/BRAIN WO CON, 05/12/2025 05/12/2025 Telephone [facility] [address] [facility] [address] Pepe Lange DO Medication Management (Questions) 05/11/2025 4:53 PM CDT - 05/11/2025 5:39 PM CDT Emergency [facility] [address] [facility] [place] [address] Vianney Cavazos PA Urinary hesitancy (Primary Dx) Discharge Disposition: Home Self Care 05/11/2025 Travel 05/11/2025 Telephone [facility] [address] [place] [address] Alberto Akins MD Referral (Gross Hematuria) 05/11/2025 Telephone [facility] [address] [place] [address] Christine Kirk DO Referral 05/10/2025 12:30 PM CDT Ancillary Procedure [facility] [address] [facility] [address] 05/10/2025 11:15 AM CDT Office Visit [facility] [address] [place] [address] Christine Kirk DO Urinary Problem (Follow up - does have a little back pain) 05/10/2025 Travel 05/07/2025 2:50 PM CDT Office Visit [facility] [address] [place] [address] Christine Kirk DO UTI (was seen at [facility] on 05/05, now feeling very weak, currently on antibiotic bid for 7 days. main sx is abdominal pain/bloating) 05/07/2025 Travel 05/05/2025 Telephone [facility] [address] [place] [address] Dixie Thomas MD Medication Management (Eliquis gus ) 05/05/2025 Nurse Triage [facility] [address] [place] [address] Pepe Lange DO Appointment 05/04/2025 Telephone [facility] [address] [place] [address] Pepe Lange DO UTI 04/27/2025 1:40 PM CDT Office Visit [address] [address] Pepe Lange DO Musculoskeletal Problem (Has been moving and thinks she pulled a muscle on the left side - tylenol helped and she was able to sleep ) 04/27/2025 Travel 04/21/2025 Telephone [facility] [address] [place] [address] Pepe Lange DO Medication Management (amLODIPine (NORVASC) 2.5 mg tablet/valsartan (DIOVAN) 40 mg tablet /); Dizzy 04/20/2025 2:10 PM CDT Office Visit [facility] [address] [place] [address] Kusum Levine PA Sores In Mouth 04/20/2025 Travel 04/20/2025 Telephone [facility] [address] [place] [address] Pepe Lange DO Medication Management 04/15/2025 Telephone [facility] [address] [place] [address] Yamile Benito MD Questions (Thrush) 04/14/2025 9:45 AM CDT Ancillary Procedure [facility] [address] [place] [address] 04/14/2025 Travel 04/07/2025 Orders Only [facility] [address] [place] [address] Pepe Lange DO Lab 04/05/2025 Telephone [facility] [address] [place] [address] Pepe Lange DO Results (xray results ) 04/01/2025 Telephone [facility] [address] [place] [address] Scar Hernandez, OD Prior Authorization (cycloSPORINE (Restasis) 0.05 % ophthalmic emulsion PA not needed Brand name preferred.) 03/30/2025 2:15 PM CDT Ancillary Procedure [address] [address] 03/30/2025 1:15 PM CDT Office Visit [facility] [address] [place] [address] Pepe Lange DO Fall (4/20 - felt dizzy/blurry and fell on butt - has not noted anything since /) 03/30/2025 Travel 03/26/2025 11:00 AM CDT Office Visit [facility] [address] [place] [address] Scar Hernandez, OD Eye Exam (CEE) 03/26/2025 Travel 03/22/2025 Refill [facility] [address] [place] [address] Pepe Lange DO Refill Request (Amitriptyline) 03/10/2025 10:25 AM CDT Office Visit [address] [address] Yamile Benito MD Throat Problem (Very dry throat. normally has dry throat but yesterday it was so bad even water didn't help.); Concerns (Concerns with bowels. Not sure if she is going regularly. Was is considered normal. 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 Gender Identity Not on file Sexual Orientation [...] Sign Reading Time Taken Comments Blood Pressure 196/88 05/19/2025 3:21 PM CDT man ual Pulse 79 05/19/2025 2:58 PM CDT Temperature 36.4 C (97.6 F) 05/11/2025 2:54 PM CDT Respiratory Rate 18 05/11/2025 5:38 PM CDT Oxygen Saturation 99% 05/19/2025 2:58 PM CDT Inhaled Oxygen Concentration - - Weight 54 kg (119 lb) 05/19/2025 2:58 PM CDT Height 147.3 cm (4' 10) 05/11/2025 2:52 PM CDT Body Mass Index 24.87 05/11/2025 2:52 PM CDT Plan of Treatment Upcoming Encounters Date Type Department Care Team (Late st Contact Info) Description 05/27/2025 9:45 AM CDT Orders Only [facility] [address] [place] [address] Lab, Farm 06/03/2025 1:45 PM CDT Appointment [facility] [address] [place] [address] 06/11/2025 1:00 PM CDT Office Visit [facility] [address] [place] [address] Dixie Thomas MD [address] [place] [address] 07/26/2025 10:00 AM CDT Orders Only [facility] [address] [place] [address] Lab, Farm 07/30/2025 11:30 AM CDT Office Visit [facility] [address] [place] [address] Angelina Medina, GRETCHEN [address] [place] [address] 08/18/2025 11:15 AM CDT Office Visit [facility] [address] [place] [address] Alberto Akins MD [address] [place] [address] Health Maintenance Due Date Last Done Comments [...] Tdap Discontinued Medical Devices Implanted Type Area Lift Operator Device Identifier Shelf Expiration Date Model / Serial / Lot Fabric Cardiovasc 0.3x3in Hemashield [id number] - [id number] Implanted:Qty: 1 on 08/23/2010 at [facility] Right: Carotid Artery [employer] 04/01/2015 [id number] / / [id number] Iol Stewart Preload 1 Pc Clear 6mm 19.00 Diopter Tecnis - [id number] Implanted:Qty: 1 on 04/16/2024 by Malik Currie MD at [facility] Left: Eye [employer] 10/28/2026 [id number] / [id number] / NA Procedures Procedure Name Priority Date/Time Associated Diagnosis Comments BASIC METABOLIC PANEL Routine 05/19/2025 3:58 PM CDT Resistant hypertension PATH URINE CYTOLOGY Routine 05/19/2025 3 :56 PM CDT Gross hematuria MS MICHAEL POST-VOIDING RESIDUAL URINE&/BLADDER CAP Routine 05/14/2025 12:00 AM CDT Feeling of incomplete bladder emptying SCAN-CT INTERPRETATION 5 12:00 AM CDT SCAN-CT INTERPRETATION 5 12:00 AM CDT SCAN-CT INTERPRETATION 5 12:00 AM CDT UA W/ SEDIMENT EXAM REFLEXED PER CRITERIA [...] urinary tract symptoms (LUTS) URINALYSIS MACROSCOPIC - [facility] ONLY POC DIP ([facility]) Routine 05/07/2025 3:06 PM CDT Lower urinary tract symptoms (LUTS) URINALYSIS MICROSCOPIC Routine 3:05 PM CDT Lower urinary tract symptoms [...] Relevant to Health Maintenance Results * (ABNORMAL) BASIC METABOLIC PANEL (05/19/2025 3:58 PM CDT) Only the most recent of2 resultswithin the time period is included. GLUCOSE 93 65 - 99 mg/dL [facility] Comment: Fasting reference interval UREA NITROGEN (BUN) 11 7 - 25 mg/dL [facility] CREATININE 0.81 0.60 - 0.95 mg/dL [facility] EGFR 72 > OR = 60 mL/min/1. 73m2 [facility] BUN/CREATININE RATIO SEE NOTE: 6 - 22 (calc) [facility] Comment: Not Reported: BUN and Creatinine are within reference range. SODIUM 130(L) 135 - 146 mmol/L [facility] POTASSIUM 4.6 3.5 - 5.3 mmol/L [facility] CHLORIDE 94(L) 98 - 110 mmol/L [facility] CARBON DIOXIDE 25 20 - 32 mmol/L [facility] ELECTROLYTE BALANCE 11 7 - 17 mmol/L (calc) [facility] CALCIUM 9.2 8.6 - 10.4 mg/dL [facility] Blood BLOOD SPECIMEN / Unknown 05/19/2025 3:58 PM CDT 05/19/2025 3:59 PM CDT us Adei Nazario DO CHEMISTRY Final Result [facility] [address] [place] [address], [facility] [address] * PATH URINE CYTOLOGY (05/19/2025 3:56 PM CDT) Case Report Medical Cytology Report Case: [id number] Authorizing Provider: Brenden Lakhani MD Collected: 05/19/2025 [facility] Ordering Location: [facility] Received: 05/19/[address] [place] [address] Pathologist: Perry Birmingham MD Specimen: Urine Void 05/20/2025 1:44 PM CDT [facility] Final Diagnosis A) URINE, VOIDED, CYTOLOGY: 1. Negative for high-grade urothelial carcinoma 05/20/2025 1:44 PM CDT [facility] at 1344 CDT Comment A) According to the Penelope System of reporting urinary cytology, the diagnosis of negative for high-grade urothelial carcinoma indicates the sample is composed of benign urothelial cells and that cells of high-grade urothelial carcinoma are absent. This does not exclude benign and low-grade urothelial neoplasia. 05/20/2025 1:44 PM CDT [facility] Clinical Information Gross hematuria 05/20/2025 1:44 PM CDT [facility] Gross Description A) SOURCE: Urine, Voided The specimen consists of 120 cc of yellow cloudy fluid from which the following is prepared: -1 Papanicolaou stained ThinPrep slide 05/20/2025 1:44 PM CDT [facility] Microscopic Description Specimen adequacy: Adequate for interpretation. All slides were reviewed. The microscopic appearance substantiates the diagnosis. 05/20/2025 1:44 PM CDT [facility] Additional Information Cytology is screened at [facility] - [address], [place] [address] and [facility] - [address] [place] [address] and [facility] - [address] [place] [address] Interpreted at [facility] - [address], [place] [address] 05/20/2025 1:44 PM CDT [facility] Urine URINE SPECIMEN / Unknown Non-Blood / Unknown 05/19/2025 3:56 PM CDT 05/19/2025 3:56 PM CDT us Brenden Lakhani MD PATHOLOGY/CYTOLOGY Final Result [facility] [address] [place] [address], [place] * MS MICHAEL POST-VOIDING RESIDUAL URINE&/BLADDER CAP (05/14/2025 12:00 AM CDT) us Brenden Lakhani MD PB - URINARY SYSTEM SERVI GHADA Final Result * SCAN-CT INTERPRETATION (05/12/2025 12:00 AM CDT) Only the most recent of3 resultswithin the time period is included. Anatomical Region Laterality Modality Other us Scanner OTHER Final Result * (ABNORMAL) UA W/ SEDIMENT EXAM REFLEXED PER CRITERIA (05/11/2025 2:49 PM CDT) COLOR Yellow Yellow Color 05/11/2025 3:16 PM CDT [facility] CLARITY Clear Clear Clarity 05/11/2025 3:16 PM CDT [facility] SPECIFIC GRAVITY,URINE <=1.005(A) 1.010, 1.015, 1.020, 1.025 05/11/2025 3:16 PM CDT [facility] PH,URINE 5.5 6.0, 7.0, 8.0, 5.5, 6.5, 7.5, 8.5 05/11/2025 3:16 PM CDT [facility] UROBILINOGEN, QUALITATIVE Normal Normal EU/dl 05/11/2025 3:16 PM CDT [facility] PROTEIN, URINE Negative Negative mg/dL 05/11/2025 3:16 PM CDT [facility] GLUCOSE, URINE Negative Negative mg/dL 05/11/2025 3:16 PM CDT [facility] KETONES,URINE Negative Negative mg/dL 05/11/2025 3:16 PM CDT [facility] BILIRUBIN,URI NE Negative Negative 05/11/2025 3:16 PM CDT [facility] OCCULT BLOOD,URINE Negative Negative 05/11/2025 3:16 PM CDT [facility] NITRITE Negative Negative 05/11/2025 3:16 PM CDT [facility] LEUKOCYTE ESTERASE Negative Negative 05/11/2025 3:16 PM CDT [facility] Urine URINE SPECIMEN / Unknown Non-Blood / Unknown 05/11/2025 2:49 PM CDT 05/11/2025 3:12 PM CDT us Carolina Lakhani MD URINE Final Res ult [facility] [address] [place] [address], * CT ABDOMEN PELVIS UROGRAM WWO (05/10/2025 [...] For Patients: As a result of the 21st Century Cures Act, medical imagingexams and procedure reports [...] lymphadenopathy. Similar to July 14, 2024 but worsenedsince 2019. Nonspecific findings but could be related to alymphoproliferative disorder. 3. Other nonacute appearing findings as discussed in the body of thereport. Please note that all CT scans at this facility use dose modulation,iterative reconstruction, and/or weight-based dosing when appropriate toreduce radiation dose to as low as reasonably achievable. Dictated by Malik Landa MD @ 05/11/2025 7:24:00 AM (Electronically Signed) Christine Kirk DO CT Final Resu lt [...] condition. RDW 12.5 11.0 - 15.0 % [facility] PLATELET COUNT 398 140 - 400 Thousand/u L [facility] MPV 10.3 7.5 - 12.5 fL [facility] Blood BLOOD SPECIMEN / Unknown 05/07/2025 4:13 PM CDT 05/07/2025 4:13 PM CDT Christine Kirk DO HEMATOLOGY Final Resu lt [facility] [address] [place] [address], [facility] [address] [place] [address] * POCT Creatinine (05/07/2025 4:10 PM CDT) POCT,CREATININ E, ISTAT 1.0 0.6 - 1.3 mg/dL [facility] Blood BLOOD SPECIMEN / Unknown 05/07/2025 4:10 PM CDT 05/07/2025 4:12 PM CDT Christine Kirk DO CHEMISTRY Final Resu lt [facility] [address] [place] [address], [facility] [address] [place] [address] * (ABNORMAL) POCT Urinalysis Dipstick Only [[id number]] (05/07/2025 3:06 PM CDT) [facility] PH 6.0 5.0 - 8.0 [facility] SPECIFIC GRAVITY < OR = 1.005 1.001 - 1.035 [facility] Comment: Specific [place] values resulted are outside the analytical measurement range of this device. Recommend repeat/additional testing as clinically indicated. GLUCOSE NEGATIVE NEGATIVE [facility] BILIRUBIN NEGATIVE NEGATIVE [facility] KETONES NEGATIVE NEGATIVE [facility] OCCULT BLOOD NEGATIVE NEGATIVE [facility] PROTEIN NEGATIVE NEGATIVE [facility] NITRITE NEGATIVE NEGATIVE [facility] LEUKOCYTE ESTERASE TRACE(A) NEGATIVE [facility] Urine URINE SPECIMEN / Unknown 05/07/2025 3:06 PM CDT 05/07/2025 3:06 PM CDT Christine Razo Yelena DO URINE Final Resu lt [facility] [address] [place] [address], [place] [phone] [facility] [address] [place] [address] * (ABNORMAL) URINALYSIS MICROSCOPIC [39409.1] - routine (05/07/2025 3:05 PM CDT) RBC 0-2 0-2, None Seen /HPF 05/07/2025 10:34 PM CDT [facility] WBC 6-10(A) 0-2, 3-5, None Seen /HPF 05/07/2025 10:34 PM CDT [facility] BACTERIA None Seen None Seen, Rare, Few Bacteria/ HPF 05/07/2025 10:34 PM CDT [facility] EPITHELIAL CELLS None Seen None Seen, Few Epi/HPF 05/07/2025 10:34 PM CDT [facility] HYALINE CASTS 0-2 0-2, 3-5 /LPF 05/07/2025 10:34 PM CDT [facility] Urine URINE SPECIMEN / Unknown Non-Blood / Unknown 05/07/2025 3:05 PM CDT 05/07/2025 3:05 PM CDT Christine Kirk DO URINE Final Resu lt [facility] [address] [place] [address], [place] * URINE CULTURE [64520.2] (05/07/2025 3:05 PM CDT) CULTURE No growth (<1,000 CFU/mL) 05/09/2025 4:01 PM CDT [facility] Urine URINE SPECIMEN / Unknown Non-Blood / Unknown 05/07/2025 3:05 PM CDT 05/07/2025 3:05 PM CDT us Christinesanya Razo Yelena DO MICROBIOLOGY Final Resu lt [facility] [address] [place] [address], [place] * US CAROTID DUPLEX BILATERAL (04/14/2025 10:02 AM CDT) Anatomical Region Laterality Modality CAROTID, NECK Ultrasound Impressions 04/15/2025 2:35 PM CDT Stable less than 50 percent narrowing of the cervical ICAs bilaterally. José Miguel Ramires D.O. Neuroradiologist [employer] [email or web address] / Narrative 04/15/2025 2:35 [...] Vertebral Artery Right Left Antegrade x x us Pepe Lange DO US Final Result * OCCULT BLOOD IFOBT STOOL (03/31/2025 11:24 AM CDT) STOOL BLOOD ,IFOBT Negative Negative 04/07/2025 5:18 PM CDT [facility] Stool STOOL SPECIMEN / Unknown Non-Blood / Unknown 03/31/2025 11:24 AM CDT 04/07/2025 11:24 AM CDT Pepe Lange DO LABORATORY Final Result [facility] [address] [place] [address], [place] * XR SPINE CERVICAL 3 VIEWS [...] @ 03/30/2025 3:36:07 PM (Electronically Signed) Pepe Jose Antoniosofy DO GENERAL IMAGING Final Result * HEMOGLOBIN (03/30/2025 2:16 PM CDT) HEMOGLOBIN 11.9 11.7 - 15.5 g/dL [facility] Blood BLOOD SPECIMEN / Unknown 03/30/2025 2:16 PM CDT 03/30/2025 2:17 PM CDT Pepe Lange DO HEMATOLOGY Final Result [facility] [address] [place] [address], [facility] [address] [place] [address] * (ABNORMAL) XR DXA BONE DENSITY 2 SITES AXIAL (08/08/2017 11:25 AM CDT) Anatomical Region Laterality Modality Spine, HIPS, HIPL, HIPR Other Narrative 08/14/2017 7:40 AM CDT Please see scanned document for results of this study. Lisa Gilmore DO DEXA Final Resul t from Last 3 Months or Most Recently Relevant to Health Maintenance Insurance [id number] [place] [address] [employer]AGE MR [id number] [facility] [place] [facility] [address] [facility] MR MEDICARE PART A HB [...] 7:32 PM 07/03/2007 3:42 PM Care Teams Aquacultural Worker Supervisor Relationship Specialty Start Date End Date Christine Kirk DO [address] [place] [address] PCP - General Family Practice 05/17/25 Bruno Howard MD Oncology Hematology and Oncology 12/03/16 [place] [address] [place] [address] Nephrology 12/21/24 [place] [address] [place] [address] Nephrology 01/25/25
--- NOTE | 2025-05-23 18:52 | CRLHL7_ITS ---
For Patients: As a result of the Century Cures Act, medical imaging exams and procedure reports are released immediately into your electronic medical record. You may view this report before your referring provider. If you have questions, please contact your health care provider. Indication: Right flank pain Technique: Volumetric multidetector CT images of the abdomen and pelvis were obtained after the administration of intravenous contrast. 50 cc Isovue 370 low osmolar intravenous contrast Comparison: CT abdomen and pelvis April 23, 2023 Findings: There is basilar atelectasis and parenchymal scar with redemonstration of a pleural-based pulmonary nodule within the right lung base measuring 6.2 millimeters. The liver is normal in attenuation without intrahepatic biliary ductal dilatation. The portal vein is patent. The gallbladder is unremarkable without evidence of radiopaque calculus. There is no significant common biliary ductal dilatation or abrupt cut off. The spleen is normal in enhancement and size. There is a small hiatal hernia and mild thickening of the gastric antrum. The pancreas is normal in enhancement without significant atrophy. The adrenal glands are unremarkable. The kidneys demonstrate preserved corticomedullary differentiation without evidence of obstructive uropathy. There is moderate stool seen throughout the colon with distal colonic diverticulosis without evidence of diverticulitis. The appendix is unremarkable. Again seen are moderate shotty appearing lymph nodes throughout the central mesentery and epigastrium similar to remote previous exam. The aorta is nonaneurysmal with moderate scattered atherosclerotic calcification. The solid pelvic viscera are grossly unremarkable. There is no free fluid or free air. The anterior abdominal wall is intact without significant hernias. The lumbar vertebral body heights are grossly maintained with mild levo scoliotic deformity of the AP alignment. Moderate to severe degenerative disc disease with disc height loss and marginal osteophyte formation is appreciated. Impression: 1. Small hiatal hernia with minimal thickening of the gastric antrum. 2. No evidence of obstructive uropathy or radiopaque calculus. Normal appendix. 3. Stable somewhat prominent central mesenteric and retroperitoneal lymph nodes from previous exam. Please note that all CT scans at this facility use dose modulation, iterative reconstruction, and/or weight-based dosing when appropriate to reduce radiation dose to as low as reasonably achievable. Dictated by Russ Figueroa MD @ 05/23/2025 7:58:06 PM (Electronically Signed)
[2025-05-23 18:53] LABS: Appearance Urine Cloudy (Clear); Bilirubin Urine Negative (Negative); Blood Urine 2+ (Negative); Color Urine Light yellow (Yellow); Glucose Urine Negative (Negative); Ketones Urine Negative (Negative); Leukocyte Esterase Urine 3+ (Negative); Nitrite Urine Negative (Negative); Protein Urine 1+ (Negative); Urobilinogen Urine 0.2 (0.2-1.0); pH Urine 6.5 (5.0-8.5)
--- NOTE | 2025-05-23 18:54 | ED.GENADULT ---
HPI - General Adult General Date Seen: 05/23/25 Chief complaint: Flank Pain Stated complaint: Kidney Stones Time Seen by Provider: 05/23/25 18:22 Source: patient Mode of arrival: ambulatory Limitations: no limitations History of Present Illness HPI narrative: Patient is an 84-year-old female the history of AFib presenting to the emergency department for right flank pain. She states couple hours prior to arrival she started having right flank pain that she states is sharp in nature. Describes it as a 10/10 pain. Took Tylenol without relief. Denies having pain like this before. She is concerned she has a kidney stone because 2 weeks ago she had some blood in her urine and a providers told her she may have just passed a kidney stone. She has never been officially diagnosed with a kidney stone. States her urine was initially bright yellow but now it seems slightly cloudy. States the symptoms do not feel similar to previous UTIs. She states she is not feel like she is emptying her bladder. Denies any fevers or chills. Denies any abdominal pain. Denies chest pain, shortness of breath, lightheadedness, dizziness, weakness, numbness. No other concerns noted. Related Data Home Medications ?Medication ?Instructions ?Recorded ?Confirmed amitriptyline 10 mg tablet 10 mg PO HS 10/23/24 05/23/25 apixaban 2.5 mg tablet (Eliquis) 2.5 mg PO BID 10/23/24 05/23/25 atenolol 25 mg tablet 25 mg PO DAILY 10/23/24 05/23/25 atenolol 50 mg tablet 50 mg PO DAILY 10/23/24 05/23/25 calcium 600 mg capsule 600 mg PO DAILY 10/23/24 05/23/25 cholecalciferol (vitamin D3) 50 2,000 unit PO DAILY 10/23/24 05/23/25 mcg (2,000 unit) capsule famotidine 20 mg tablet 20 mg PO DAILY 10/23/24 05/23/25 levothyroxine 75 mcg tablet 75 mcg PO DAILY 10/23/24 05/23/25 losartan 25 mg tablet 12.5 mg PO BID 10/23/24 05/23/25 [id number]-vit K-lut PO 10/23/24 omeprazole 20 mg capsule,delayed 20 mg PO DAILY 10/23/24 05/23/25 release psyllium PO 10/23/24 valsartan 40 mg tablet 40 mg PO DAILY 05/05/25 05/05/25 valsartan 80 mg tablet 80 mg PO DAILY 05/23/25 05/23/25 Previous Rx's ?Medication ?Instructions ?Recorded nitrofurantoin 100 mg PO Q12H 7 days #14 caps 05/05/25 monohydrate/macrocrystals 100 mg capsule (Macrobid) Allergies Allergy/AdvReac Type Severity Reaction Status Date / Time ezetimibe (From Zetia) Allergy Mild myalgia Verified 05/23/25 20:15 pravastatin Allergy Mild myalgia Verified 05/23/25 20:15 rosuvastatin (From Crestor) Allergy Mild gi upset Verified 05/23/25 20:15 simvastatin (From Zocor) Allergy Mild myalgia Verified 05/23/25 20:15 lactose Allergy Unknown Verified 05/23/25 20:15 morphine AdvReac Mild Hallucinati Verified 05/23/25 20:15 ng Review of Systems Status of ROS: Reports: 10 or more systems reviewed and unremarkable except as noted in History and below [facility] Social History Smoking Status: Never smoker Do you use any of these nicotine containing products: None Second hand tobacco smoke exposure: No How often do you have a drink containing alcohol: never How often do you have six or more drinks on one occasion: Never AUDIT-C Alcohol total score: 0 Non-prescribed substance use: denies use service: No Exam Narrative: Exam Narrative: Const: Well-nourished, Well-developed, in moderate distress Eyes: PERRL, no conjunctival injection, and symmetrical lids HENT: Atraumatic external nose and ears. Moist mucous membranes. Neck: Symmetric, trachea midline, No thyromegaly. CVS: RRR, No murmurs or gallops. Peripheral pulses 2+ and equal in all extremities RESP: Unlabored respiratory effort. Clear to auscultation bilaterally. GI: Nontender/Nondistended, No rebound or guarding. Right CVA tenderness MSK:Extremities w/o deformity, Normal Active ROM Skin: Warm, Dry. No rashes or lesions. Neuro: Normal Muscle tone, No focal neurological deficits. Psych: Awake, Alert, & Oriented x3. Appropriate mood and affect. Const: Vital Signs, click to edit/add: Vital Signs - 24 hr 05/23/25 18:27 05/23/25 19:44 05/23/25 19:45 Temperature 98.4 F Pulse Rate Pulse Rate [Pulse Oximeter] 109 H Respiratory Rate 22 17 20 Blood Pressure Blood Pressure [Ri ght Upper Arm] 166/84 H Pulse Oximetry 99 Oxygen Delivery Me thod Room Air 05/23/25 20:00 05/23/25 20:15 05/23/25 20:27 Temperature Pulse Rate 73 84 87 Pulse Rate [Pulse Oximeter] Respiratory Rate 14 19 15 Blood Pressure 181/79 H Blood Pressure [Ri ght Upper Arm] Pulse Oximetry 100 97 96 Oxygen Delivery Me thod 05/23/25 20:30 05/23/25 20:33 05/23/25 20:45 Temperature Pulse Rate 87 88 Pulse Rate [Pulse Oximeter] Respiratory Rate 17 19 10 L Blood Pressure 168/71 H Blood Pressure [Ri ght Upper Arm] Pulse Oximetry 98 98 Oxygen Delivery Me thod 05/23/25 21:00 05/23/25 21:03 05/23/25 21:15 Temperature Pulse Rate Pulse Rate [Pulse Oximeter] Respiratory Rate 13 24 13 Blood Pressure 163/84 H Blood Pressure [Ri ght Upper Arm] Pulse Oximetry Oxygen Delivery Me thod Course Vital Signs Vital signs: Initial Vital Signs Temperature 98.4 F 05/23/25 18:27 Temperature Source Temporal Artery Scan 05/23/25 18:27 Pulse Rate 109 H 05/23/25 18:27 Respiratory Rate 22 05/23/25 18:27 Blood Pressure 166/84 H 05/23/25 18:27 Blood Pressure Mean 111 H 05/23/25 18:27 Blood Pressure Position Sitting 05/23/25 18:27 Pulse Oximetry 99 05/23/25 18:27 Oxygen Delivery Method Room Air 05/23/25 18:27 Vital Signs Temperature 98.4 F 05/23/25 18:27 Pulse Rate 109 H 05/23/25 18:27 Respiratory Rate 22 05/23/25 18:27 Blood Pressure 166/84 H 05/23/25 18:27 Pulse Oximetry 99 05/23/25 18:27 Oxygen Delivery Method Room Air 05/23/25 18:27 Temperature 98.4 F 05/23/25 18:27 Pulse Rate 88 05/23/25 20:45 Respiratory Rate 13 05/23/25 21:15 Blood Pressure 163/84 H 05/23/25 21:03 Pulse Oximetry 98 05/23/25 20:45 Oxygen Delivery Method Room Air 05/23/25 18:27 Medications Administered Medications: Discontinued Medications Generic Name Dose Route Start Last Admin Trade Name Ahsan PRN Reason Stop Dose Admin Lactated Ringer's 1,000 mls @ 1,000 mls/hr 05/23/25 18:52 05/23/25 20:01 Lactated Ringers 1000 Ml IV 05/23/25 19:51 1,000 mls/hr .Q1H ONE Administration Ketorolac Tromethamine 15 mg 05/23/25 19:17 05/23/25 19:22 Ketorolac 15 Mg/Ml Inj IVP 05/23/25 19:18 15 mg ONCE ONE Administration Morphine Sulfate 4 mg 05/23/25 18:52 05/23/25 19:17 Morphine 4 Mg/Ml Inj IVP 05/23/25 18:53 Not Given ONCE ONE Medical Decision Making [facility] Narrative Medical decision making narrative: Patient is an 84-year-old female presenting for right flank pain. The differential diagnosis of flank pain including vascular causes such as aortic aneurysm, renal vascular issues, aortic dissection, mesenteric ischemia, nephrolithiasis, ureter stricture, pyelonephritis, along with several other GI and gynecological/ causes. With her current pain I do have concerns about either a kidney stone or possible nephrolithiasis any UTI. Will do CT scan with IV contrast. Will also order urinalysis. She meets sepsis criteria with her tachycardia and tachypnea. That may be just due to her pain but I will do sepsis workup. CBC,, CMP, lactate, EKG, troponin, blood cultures all ordered. Gross give her L of fluids and morphine for pain. She gets ulcers so is not allowed to have NSAIDs. Patient declined morphine instead want to try Toradol. Toradol helped significantly with her pain. CBC and CMP shows no concerning findings. Urinalysis shows cloudy urine with +3 leukocyte esterases but no white blood cells and few bacteria there is some blood in the urine. Her lactate was elevated at 2.2 initially. Will repeat this. CT scan returned showing no acute concerning abnormalities. Her pain continues to be much improved in her lactate is down to 1.9. I did speak to her about possibly starting her on antibiotic for possible UTI but she has multiple side effects with antibiotics she states. She would like to wait until cultures come back. She will be discharged Lab Data Labs: Lab Results 05/23/25 05/23/25 05/23/25 Range/Units 18:42 18:52 19:00 WBC 10.22 (4.50-11.00) K/uL RBC 3.98 L (4.00-5.20) m/uL Hgb 11.9 L (12.0-16.0) gm/dL Hct 36.0 (33.0-51.0) % MCV 91 (80-100) fL MCH 30 (26-34) pg MCHC 33 (32-36) gm/dL RDW Coeff of Pam 13.1 (11.5-15.5) % Plt Count 335 (140-440) K/uL Neut % (Auto) 59.9 (42.0-72.0) % Lymph % (Auto) 27.7 (20-44) % Glenn % (Auto) 9.4 (0.0-11.0) % Eos % (Auto) 2.4 (0.0-7.0) % Baso % (Auto) 0.5 (0.0-3.0) % Neut # (Auto) 6.12 (1.7-7.0) K/uL Lymph # (Auto) 2.83 (0.90-2.90) K/uL Glenn # (Auto) 1.00 H (0.00-0.90) K/UL Eos # (Auto) 0.25 (0.00-0.50) K/uL Baso # (Auto) 0.05 (0.00-0.30) K/uL Abs Immat Gran (auto) 0.01 (0.00-0.30) K/uL Imm/Tot Granulo (auto) 0.1 % Sodium 133 L (135-149) mmol/L Potassium 4.1 (3.6-5.1) mmol/L Chloride 100 (96-114) mmol/L Carbon Dioxide 24 (20-32) mmol/L Anion Gap 9 (7-15) mEq/L BUN 12 (7-30) mg/dL Creatinine 0.8 (0.5-1.5) mg/dL Estimated Creat Clear 36.65 Estimated GFR 74 ml/min Glucose 110 (60-115) mg/dL Lactate 2.2 H (0.5-1.9) mmol/L Calcium 9.3 (8.4-10.6) mg/dL Total Bilirubin 0.4 (0.1-1.5) mg/dL AST 37 H (12-35) U/L ALT 25 (4-35) U/L Alkaline Phosphatase 86 (40-150) U/L Troponin I < 0.01 (0.01-0.04) ng/mL Total Protein 7.7 (6.0-8.3) g/dL Albumin 4.4 (3.3-5.0) g/dL Urine Color Light yellow (Yellow) Urine Appearance Cloudy A (Clear) Urine pH 6.5 (5.0-8.5) Ur Specific [place] 1.010 (1.000-1.030) Urine Protein 1+ A (Negative) Urine Glucose (UA) Negative (Negative) Urine Ketones Negative (Negative) Urine Blood 2+ A (Negative) Urine Nitrite Negative (Negative) Urine Bilirubin Negative (Negative) Urine Urobilinogen 0.2 (0.2-1.0) Ur Leukocyte Esterase 3+ A (Negative) Urine RBC 2-5 A (0-2) Urine WBC 2-5 (0-5) Ur Squamous Epith Cells Few (None-Few) Urine Bacteria Few A (None) POC Creatinine 0.9 (0.6-1.3) mg/dl 05/23/25 Range/Units 19:58 WBC (4.50-11.00) K/uL RBC (4.00-5.20) m/uL Hgb (12.0-16.0) gm/dL Hct (33.0-51.0) % MCV (80-100) fL MCH (26-34) pg MCHC (32-36) gm/dL RDW Coeff of Pam (11.5-15.5) % Plt Count (140-440) K/uL Neut % (Auto) (42.0-72.0) % Lymph % (Auto) (20-44) % Glenn % (Auto) (0.0-11.0) % Eos % (Auto) (0.0-7.0) % Baso % (Auto) (0.0-3.0) % Neut # (Auto) (1.7-7.0) K/uL Lymph # (Auto) (0.90-2.90) K/uL Glenn # (Auto) (0.00-0.90) K/UL Eos # (Auto) (0.00-0.50) K/uL Baso # (Auto) (0.00-0.30) K/uL Abs Immat Gran (auto) (0.00-0.30) K/uL Imm/Tot Granulo (auto) % Sodium (135-149) mmol/L Potassium (3.6-5.1) mmol/L Chloride (96-114) mmol/L Carbon Dioxide (20-32) mmol/L Anion Gap (7-15) mEq/L BUN (7-30) mg/dL Creatinine (0.5-1.5) mg/dL Estimated Creat Clear Estimated GFR ml/min Glucose (60-115) mg/dL Lactate 1.9 (0.5-1.9) mmol/L Calcium (8.4-10.6) mg/dL Total Bilirubin (0.1-1.5) mg/dL AST (12-35) U/L ALT (4-35) U/L Alkaline Phosphatase (40-150) U/L Troponin I (0.01-0.04) ng/mL Total Protein (6.0-8.3) g/dL Albumin (3.3-5.0) g/dL Urine Color (Yellow) Urine Appearance (Clear) Urine pH (5.0-8.5) Ur Specific [place] (1.000-1.030) Urine Protein (Negative) Urine Glucose (UA) (Negative) Urine Ketones (Negative) Urine Blood (Negative) Urine Nitrite (Negative) Urine Bilirubin (Negative) Urine Urobilinogen (0.2-1.0) Ur Leukocyte Esterase (Negative) Urine RBC (0-2) Urine WBC (0-5) Ur Squamous Epith Cells (None-Few) Urine Bacteria (None) POC Creatinine (0.6-1.3) mg/dl Imaging Data CT scan abdomen and pelvis: Attestation: I have reviewed the pertinent imaging results. Radiologist's impression: 1. Small hiatal hernia with minimal thickening of the gastric antrum. 2. No evidence of obstructive uropathy or radiopaque calculus. Normal appendix. 3. Stable somewhat prominent central mesenteric and retroperitoneal lymph nodes from previous exam. Please note that all CT scans at this facility use dose modulation, iterative reconstruction, and/or weight-based dosing when appropriate to reduce radiation dose to as low as reasonably achievable. Dictated by Russ Figueroa MD @ 05/23/2025 7:58:06 PM ECG Data Attestation: I personally reviewed and interpreted this ECG as follows: Prior ECG tracings: available for review Interpretation: Normal sinus rhythm with rate of 73 beats per minute, normal intervals, normal axis, no ST or T-wave abnormalities. Appears similar previous EKG on file. Discharge Plan Discharge Clinical Impression: Acute right flank pain Patient Disposition: Home, Self-Care Condition: Improved Instructions: Flank Pain (ED) Additional Instructions: I do not know exactly what was causing right flank pain but he can try taking ibuprofen for few days along with the Tylenol. I do recommend calling your primary care provider tomorrow if the pain persists. You do have some concern for a UTI but at this time we agreed to hold off on any antibiotics until your cultures come back. Prescriptions: No Action atenolol 25 mg tablet 25 mg PO DAILY levothyroxine 75 mcg tablet 75 mcg PO DAILY famotidine 20 mg tablet 20 mg PO DAILY amitriptyline 10 mg tablet 10 mg PO HS losartan 25 mg tablet 12.5 mg PO BID omeprazole 20 mg capsule,delayed release(DR/EC) 20 mg PO DAILY atenolol 50 mg tablet 50 mg PO DAILY Eliquis 2.5 mg tablet 2.5 mg PO BID cholecalciferol (vitamin D3) 50 mcg (2,000 unit) capsule 2,000 unit PO DAILY [id number]-vit K-lut [Centrum Silver Women] PO calcium 600 mg capsule 600 mg PO DAILY psyllium [Metamucil (sugar)] PO valsartan 40 mg tablet 40 mg PO DAILY nitrofurantoin monohyd/m-cryst [Macrobid] 100 mg capsule 100 mg PO Q12H 7 Days Qty: 14 0RF Rx Instructions: must administer with a meal/food valsartan 80 mg tablet 80 mg PO DAILY Follow Up/Referrals: PEPE ZARAGOZA DO [Referring, Family Practice] Stand Alone Forms: MyHealth Info Instructions
[2025-05-23 18:56] LABS: Bacteria Urine Few; Squamous Epithelial Cell Urine Few (None-Few)
[2025-05-23 19:15] LABS: Creatinine, Point-of-Care* 0.9 mg/dl (0.6-1.3)
[2025-05-23 19:18] LABS: Lactate Sepsis w/Reflex* 2.2 mmol/L (0.5-1.9)
[2025-05-23] MEDS: KETOROLAC 15 MG/ML inj IVP (19:22)
[2025-05-23 19:28] LABS: Basophils Absolute Auto 0.05 K/uL (0.00-0.30); Basophils Percent Auto 0.5 % (0.0-3.0); Eosinophils Absolute Auto 0.25 K/uL (0.00-0.50); Eosinophils Percent Auto 2.4 % (0.0-7.0); Hemoglobin* 11.9 gm/dL (12.0-16.0); Immature Granulocytes Abs Auto 0.01 K/uL (0.00-0.30); Immature Granulocytes Pct Auto 0.1 %; Lymphocytes Absolute Auto 2.83 K/uL (0.90-2.90); Lymphocytes Percent Auto 27.7 % (20-44); Mean Corpuscular HGB Conc 33 gm/dL (32-36); Mean Corpuscular Hemoglobin 30 pg (26-34); Mean Corpuscular Volume 91 fL (80-100); Monocytes Percent Auto 9.4 % (0.0-11.0); Neutrophils Absolute Auto 6.12 K/uL (1.7-7.0); Neutrophils Percent Auto 59.9 % (42.0-72.0); Platelet Count* 335 K/uL (140-440); RDW Coefficient of Variation % 13.1 % (11.5-15.5); Red Blood Count 3.98 m/uL (4.00-5.20); White Blood Count* 10.22 K/uL (4.50-11.00)
[2025-05-23 19:30] LABS: Slide Review Reflex No
[2025-05-23 19:47] LABS: Albumin* 4.4 g/dL (3.3-5.0); Chloride* 100 mmol/L (96-114); Potassium* 4.1 mmol/L (3.6-5.1); Sodium* 133 mmol/L (135-149)
[2025-05-23 19:50] LABS: Alanine Aminotransferase* 25 U/L (4-35); Alkaline Phosphatase* 86 U/L (40-150); Anion Gap 9 mEq/L (7-15); Aspartate Amino Transferase* 37 U/L (12-35); Bilirubin Total* 0.4 mg/dL (0.1-1.5); Blood Urea Nitrogen* 12 mg/dL (7-30); Calcium* 9.3 mg/dL (8.4-10.6); Carbon Dioxide* 24 mmol/L (20-32); Creatinine* 0.8 mg/dL (0.5-1.5); Est. Creatinine Clearance* 36.65; Estimated Glomerular Filt Rate 74 ml/min; Glucose* 110 mg/dL (60-115); Total Protein* 7.7 g/dL (6.0-8.3)
[2025-05-23] MEDS: LACTATED RINGERS 1000 ML 1,000 ML IV (20:01)
[2025-05-23 20:03] LABS: Troponin I* < 0.01 ng/mL (0.01-0.04)
[2025-05-23 21:15] LABS: Lactate Sepsis 2 Hour 1.9 mmol/L (0.5-1.9)
== END 2025-05-23 21:53 | disposition home or self-care (01) ==
PROVIDERS: Emergency Provider Student in an Organized Health Care Education/Training Program; PCP Family Medicine
DX: R10.9 Unspecified abdominal pain (principal)
CPT/HCPCS: 36415; 74177; 80053; 81001; 82565; 83605; 84484; 85025; 87040; 87086; 93005; 96374; 96375; 99284; 99285; J1885; J7120; Q9967

== ENCOUNTER 2025-08-17 13:35 | Emergency (ER) | payer MEDICARE, SELFPAY ==
--- OUTSIDE RECORDS SUMMARY | 2025-08-17 13:38 | XMS_ITS | Clinical Summary ---
Author Organization [employer] Address [address] [place] [id number] Care Team Providers Care Cras Name Role Phone Bruno Howard MD Unavailable [phone] Leland Whaley MD Unavailable Angelina Medina NP Unavailable [phone] Christine Kirk DO Primary Care Provider [phone] Allergies Active Allergy Reactions Criticality Noted Date [...] by mouth once daily. 0 9 Active fexofenadine (ANABEL) 180 mg tabletIndications: Nausea Take 180 mg by mouth once daily with a meal. Do not crush or chew. 90 Tablet 1 1 Active levothyroxine (SYNTHROID) 75 mcg tabletIndications: Other [...] a meal. 90 Capsule 3 5 Active cycloSPORINE (Restasis) 0.05 % ophthalmic emulsionIndication s:Keratitis sicca, both eyes Place 1 Drop into both eyes every 12 hours. 60 Each 3 5 Active valsartan 80 mg tabletIndications: Resistant hypertension Take 1 Tablet (80 mg) by mouth once daily. Take in addition to 40 mg tablet for total daily dose of 120 mg. 90 Tablet 5 Active amLODIPine 2.5 mg tabletIndications: Resistant hypertension Take 1 Tablet (2.5 mg) by mouth once daily. 90 Tablet 5 Active amitriptyline 10 mg tabletIndications: Anxiety Take 1 Tablet (10 mg) by mouth at bedtime. 180 Tablet 5 Active saliva substitute (Biotene Dry Mouth Oral Rinse) mouthwash Swish and spit 15 mL by mouth 4 times daily if needed for Dry Mouth. 5 Active psyllium (MetamuciL) 0.4 gram capsule Take 1 Capsule by mouth once daily. 5 Active atenoloL (TENORMIN) 25 mg tabletIndications: PAF (paroxysmal atrial fibrillation) (HC),HTN (hypertension) Take 1 tablet in the AM and 2 tablets in the PM 270 Tablet 3 5 Active diclofenac topical (VOLTAREN) 1 % gelIndications:TMJ tenderness, bilateral Apply 2 g topically to affected area(s) four times daily. 20 g 2 Active Active Problems Problem Noted Date Diagnosed Date [...] 07/01 Overview (06/29/2024): Documented on 06/21/2021 by RAMIREZ HERNANDEZ Anticoagulated 07/01/2023 Anxiety 06/11/2022 Chronic nausea [...] EGD. Follicular lymphoma. Surgery January 2016 at [place] for right side of neck. EGD 09/2019 [...] Encounters Date Type Department Care Team Description 08/13/2025 10:00 AM CDT Office Visit [facility] [address] [facility] [place] [address] Christine Kirk, DO Headache (Patient would like CAT scan or MRI of the head. She states it helps to lay down. she also states she takes tylenol in the morning, at lunch, and evening. ) 08/13/2025 Travel 08/11/2025 1:45 PM CDT Office Visit [facility] [address] [place] [address] Lavinia Lange, Headache (Pain in temples bilaterally on/off - comes on at night - Tylenol helps) 08/11/2025 Travel 08/09/2025 Travel 07/30/2025 11:30 AM CDT Office Visit [facility] [address] [place] [address] Angelina Medina NP Follow Up 07/30/2025 Travel 07/26/2025 10:00 AM CDT Orders Only [facility] [address] [place] [address] Lab, [facility] 07/26/2025 Travel 07/13/2025 Telephone [facility] [address] [place] [address] Christine Kirk DO Questions (BP READINGS) 07/08/2025 Refill [facility] [address] [place] [address] Dixie Thomas MD Refill Request (Atenolol) 07/01/2025 1:10 PM CDT Office Visit [facility] [address] [place] [address] Christine Kirk DO Neck Pain/problem (ongoing); Follow Up (Enlarged lymph nodes) 07/01/2025 Travel 06/11/2025 1:00 PM CDT Office Visit [facility] [address] [place] [address] Dixie Thomas MD CV General Cardiology Est (Annual F/U, PAF. Pt states she is doing good, BP has been under control since amlodipine prescription. Denies sx. Brought BP readings with today from 05/17.) 06/11/2025 Travel 06/11/2025 Telephone [facility] [address] [place] [address] Christine Kirk DO Referral (PT for neck and back ) 06/09/2025 Telephone [facility] [address] [place] [address] Kusum Levine PA Medication Management 06/03/2025 1:15 PM CDT Office Visit [facility] [address] [place] [address] Kusum Levine PA Mouth/Lip Problem 06/03/2025 Travel 06/02/2025 Telephone [facility] [address] [place] [address] Christine Kirk, Medication Management (medication management ) 05/28/2025 Telephone [facility] [address] [place] [address] Christine Kirk, Medication Management (cephalexin qid /) 05/28/2025 Nurse Triage [address] [address] Christine Kirk, 05/27/2025 Nurse Triage [facility] [address] [place] [address] Christine Kirk, Urinary Problem 05/26/2025 Orders Only [facility] Scanner 1 scan: (1-Ord) INCOMING RECORDS-LABS, [facility], 05/26/2025 05/26/2025 Telephone [facility] [address] [place] [address] Christine Kirk, Questions 05/25/2025 Telephone [facility] [address] [place] [address] Christine Kirk, UTI (Follow up) 05/24/2025 11:15 AM CDT Office Visit [facility] [address] [place] [address] Christine Kirk, ER Follow up (Upper right Back pain. Started yesterday ); Medication Management (concerns with Valsartan ) 05/24/2025 Travel 05/23/2025 Orders Only [facility] Scanner 1 scan: (1-Ord) [facility], EKG, 05/23/2025 05/23/2025 Orders Only [facility] Scanner 1 scan: (1-Ord) [facility], UNKNOWN PROVIDER, 05/23/2025 05/23/2025 Orders Only [facility] Scanner 1 scan: (1-Ord) [facility], CT ABDOMEN PELVIS W/CON , 05/23/2025 05/20/[address] [address] Christine Kirk, Prior Authorization (valsartan 40 mg tablet - PA NOT NEEDED) 05/20/2025 Orders Only [facility] [address] [place] [address] Christine Kirk, <No scans attached> 05/19/2025 2:50 PM CDT Office Visit [address] [address] Christine Kirk, Follow Up (Blood pressure) 05/19/2025 Nurse Triage [address] [address] Christine Kirk, Fatigue 05/19/2025 Travel 05/18/2025 Telephone [facility] [address] [place] [address] Christine Kirk, Referral Clarification 05/17/2025 2:25 PM CDT Office Visit [address] [address] Christine Kirk DO ER Follow up; Establish Care (Would like to switch patient care provider to Dr. Kirk ) from Last 3 Months Immunizations Immunization Administration Dates Next Due AMB Influenza, IIV3 (Age >=3 years)(Flu Clinic Only) 10/23/2008 Amb Influenza, Inact (High-d ose) (Flu Clinic Only) 09/01/2014 COVID-19 VACCINE SPIKEVAX (M ODERNA 50MCG/0.5ML) 12YO+ PFS 12/31/2023 COVID-19 vaccine (CareWireBio NTech 30mcg/0.3mL) 12YO+ WESTLEY-SUCROSE PF, MDV 05/07/2022 COVID-19 vaccine (CareWireBio NTech 30mcg/0.3mL) PF, MDV 08/28/2021,01/31/2021,01/10/2021 Influenza, High-dose [...] screening, thyroid dz~father: nov @ 87, h/o [place] in 50s, HTN~grprs: [...] isolated from those around you? 0 11/16/2024 Alcohol Use Answer Date Recorded How often do you have a drink containing alcohol ? 0 08/13/2025 How many drinks containing a lcohol do you have on a typical day when you are drinking? 0 08/13/2025 How often do you have five or more drinks on one occasion? 0 08/13/2025 Financial Resource Strain Answer Date R ecorded [...] on file Legal Sex Female 5:24 AM [employer] Gender Identity Not on file Sexual Orientation [...] Sign Reading Time Taken Comments Blood Pressure 168/83 08/13/2025 11:03 AM CDT Pulse 64 08/13/2025 10:13 AM CDT Temperature 36.4 C (97.6 F) 05/11/2025 2:54 PM CDT Respiratory Rate 18 05/11/2025 5:38 PM CDT Oxygen Saturation 100% 08/13/2025 10:13 AM CDT Inhaled Oxygen Concentration - - Weight 51.4 kg (113 lb 6.4 oz) 08/13/2025 10:13 AM CDT Height 147.3 cm (4' 10) 06/11/2025 12:56 PM CDT Body Mass Index 23.7 06/11/2025 12:56 PM CDT Plan of Treatment Health Maintenance Due Date Last Done Comments RSV vaccine for adults or (1 - 1-dose 75+ series) 2017 Depression screening for age 12+ 06/29/2025 06/29/2024, 07/01/2023, 06/11/2022, Additional history exists Medicare Wellness for age 65+ 06/30/2025 06/29/2024, 07/01/2023, 06/11/2022, Additional history exists COVID-19 vaccine series ( season) 2025 12/31/2023, 05/07/2022, 08/28/2021, Additional history exists Influenza Vaccine (#1) 2025 , 10/22/2023, 08/27/2022, Additional history exists BMI (ht and wt on same day) for age 18+ 06/11/2026 06/11/2025, 06/29/2024, 06/22/2024, Additional history exists Tetanus booster 10/07/2027 10/07/2017, 08/02, 07/20/2003, Additional history exists Pneumococcal series for age 50+ Completed 08/23/2015, 09/25/2007 DEXA/DXA scan for age 65+ Completed 08/08/2017, Zoster (shingles) series for age 50+ Completed 02/05/2022, 12/05/2021 Hepatitis B series for 19+ Aged Out N o longer eligible based on patient's age to complete this topic Medical Devices Implanted Type Area Customer Relations Advisor Device Identifier Shelf Expiration Date Model / Serial / Lot Fabric Cardiovasc 0.3x3in Hemashield [id number] - [id number] Implanted:Qty: 1 on 08/23/2010 at [facility] Right: Carotid Artery [employer] 04/01/2015 [id number] / / [id number] Iol Freestone Preload 1 Pc Clear 6mm 19.00 Diopter Tecnis - [id number] Implanted:Qty: 1 on 04/16/2024 by Malik Currie MD at [facility] Left: Eye [employer] 10/28/2026 [id number] / [id number] / NA Procedures Procedure Name Priority Date/Time Associated Diagnosis Comments C-REACTIVE PROTEIN STAT 08/11/2025 2: 49 PM CDT Temporal headache Vision changes SEDIMENTATION RATE STAT 08/11/2025 2: 49 PM CDT Temporal headache Vision changes PTH,INTACT Routine 07/26/2025 10:03 AM CDT Stage 3a chronic kidney disease (HC) BASIC METABOLIC PANEL Routine 07/26/2025 10:03 AM CDT HYPERTENSION SCAN CORRESP-LABORATORY RESULTS 05/26/2025 12:00 AM CDT SCAN-ELECTROCARDIOGRAM EKG 05/23/2025 12:00 AM CDT SCAN-LABORATORY REPORT 12:00 AM CDT SCAN-CT INTERPRETATION 12:00 AM CDT BASIC METABOLIC PANEL Routine 05/19/2025 3:58 PM CDT Resistant hypertension PATH URINE CYTOLOGY Routine 05/19/2025 3 :56 PM CDT Gross hematuria XR DXA BONE DENSITY 2 SITES AXIAL Routine 08/08/2017 11:25 AM CDT Other specified menopausal and perimenopausal disorders Osteopenia, unspecified location from Last 3 Months or Most Recently Relevant to Health Maintenance Results * SEDIMENTATION RATE (08/11/2025 2:49 PM CDT) SEDIMENTATION RATE 19 <30 mm/hr 2024 4:29 PM CDT [facility] Blood BLOOD SPECIMEN / Unknown [facility] / Unknown 08/11/2025 2:49 PM CDT 08/11/2025 2:49 PM CDT Lavinia Lange DO HEMATOLOGY Final Result Performing Organization Address City/[facility]/ZIP Co de Phone Number [facility] [address] [place] [address] * C-REACTIVE PROTEIN (08/11/2025 2:49 PM CDT) C-REACTIVE PROTEIN 0.3 <0.5 mg/dL 08/11/2025 4:37 PM CDT [facility] Blood BLOOD SPECIMEN / Unknown [facility] / Unknown 08/11/2025 2:49 PM CDT 08/11/2025 2:49 PM CDT Lavinia Lange DO CHEMISTRY Final Result Performing Organization Address City/[facility] Co de Phone Number [facility] [address] [place] [address] * PTH,INTACT (07/26/2025 10:03 AM CDT) PARATHYROID HORMONE, INTACT 32 16 - 77 pg/mL 07/27/2025 1:48 PM CDT [facility] Comment: Interpretive Guide Intact PTH Calcium ------- Normal Parathyroid Normal Normal Hypoparathyroidism Low or Low Normal Low Hyperparathyroidism Primary Normal or High High Secondary High Normal or Low Tertiary High High Non-Parathyroid Hypercalcemia Low or Low Normal High CALCIUM 9.1 8.6 - 10.4 mg/dL 07/27/2025 1:48 PM CDT [facility] Blood BLOOD SPECIMEN / Unknown [facility] / Unknown 07/26/2025 10:03 AM CDT 07/26/2025 10:03 AM CDT Angelina Medina CANDY CATCHER SEND OUTS Final Resu lt [facility] [address] [place] [address], [place] [phone] * (ABNORMAL) BASIC METABOLIC PANEL (07/26/2025 10:03 AM CDT) Only the most recent of2 resultswithin the time period is included. SODIUM 134(L) 135 - 146 mmol/L 07/27/2025 3:19 AM CDT [facility] POTASSIUM 4.4 3.5 - 5.3 mmol/L 07/27/2025 3:19 AM CDT [facility] CARBON DIOXIDE 26 20 - 32 mmol/L 07/27/2025 3:19 AM CDT [facility] GLUCOSE 78 65 - 99 mg/dL 07/27/2025 3:19 AM CDT [facility] Comment: Fasting reference interval CALCIUM 9.1 8.6 - 10.4 mg/dL 07/27/2025 3:19 AM CDT [facility] CREATININE 0.96(H) 0.60 - 0.95 mg/dL 07/27/2025 3:19 AM CDT [facility] BUN/CREATININE RATIO 16 6 - 22 (calc) 07/27/2025 3:19 AM CDT [facility] EGFR 59(L) > OR = 60 mL/min/1. 73m2 07/27/2025 3:19 AM CDT [facility] UREA NITROGEN (BUN) 15 7 - 25 mg/dL 07/27/2025 3:19 AM CDT [facility] ELECTROLYTE BALANCE 8 7 - 17 mmol/L (calc) 07/27/2025 3:19 AM CDT [facility] CHLORIDE 100 98 - 110 mmol/L 07/27/2025 3:19 AM CDT [facility] Blood BLOOD SPECIMEN / Unknown [facility] / Unknown 07/26/2025 10:03 AM CDT 07/26/2025 10:03 AM CDT Angelina Medina CANDY CATCHER CHEMISTRY Final Resu lt [facility] [address] [place] [address], * SCAN CORRESP-LABORATORY RESULTS (05/26/2025 12:00 AM CDT) us Scanner OTHER Final Result * SCAN-LABORATORY REPORT (05/23/2025 12:00 AM CDT) us Scanner OTHER Final Result * SCAN-CT INTERPRETATION (05/23/2025 12:00 AM CDT) Anatomical Region Laterality Modality Other us Scanner OTHER Final Result * SCAN-ELECTROCARDIOGRAM EKG (05/23/2025 12:00 AM CDT) us Scanner OTHER Final Result * PATH URINE CYTOLOGY (05/19/2025 3:56 PM CDT) Case Report Medical Cytology Report Case: [id number] Authorizing Provider: Brenden Lakhani MD Collected: 05/19/2025 [facility] Ordering Location: [facility] Received: 05/19/[address] [place] [address] Pathologist: Perry Birmingham MD Specimen: Urine Void 05/20/2025 1:44 PM CDT [facility] Final Diagnosis A) URINE, VOIDED, CYTOLOGY: 1. Negative for high-grade urothelial carcinoma 05/20/2025 1:44 PM CDT [facility] at 1344 CDT Comment A) According to the [employer]nel[employer] System of reporting urinary cytology, the diagnosis of negative for high-grade urothelial carcinoma indicates the sample is composed of benign urothelial cells and that cells of high-grade urothelial carcinoma are absent. This does not exclude benign and low-grade urothelial neoplasia. 05/20/2025 1:44 PM CDT [facility] Clinical Information Gross hematuria 05/20/2025 1:44 PM CDT [facility] Gross Description A) SOURCE: Urine, Voided The specimen consists of 120 cc of yellow cloudy fluid from which the following is prepared: -1 Papanicolaou stained ThinPrep slide 05/20/2025 1:44 PM CDT [facility] Microscopic Description Specimen adequacy: Adequate for interpretation. All slides were reviewed. The microscopic appearance substantiates the diagnosis. 05/20/2025 1:44 PM CDT [facility] Additional Information Cytology is screened at [facility] - [address], [place] [address] and [facility] - [address], [place] [address] and [facility] - [address] [place] [address] Interpreted at [facility] - [address] [address] 05/20/2025 1:44 PM CDT [facility] Urine URINE SPECIMEN / Unknown Non-Blood / Unknown 05/19/2025 3:56 PM CDT 05/19/2025 3:56 PM CDT us Brenden Lakhani MD PATHOLOGY/CYTOLOGY Final Result Performing Organization Address City/State/[facility] Co de Phone Number [facility] [address] [place] [address], * (ABNORMAL) XR DXA BONE DENSITY 2 SITES AXIAL (08/08/2017 11:25 AM CDT) Anatomical Region Laterality Modality Spine, HIPS, HIPL, HIPR Other Narrative 08/14/2017 7:40 AM CDT Please see scanned document for results of this study. us Lisa Gilmore DO DEXA Final Resul t from Last 3 Months or Most Recently Relevant to Health Maintenance Insurance [phone] [place] [address] [employer] MED[employer]ARE [employer]VANTAGE MR [facility] MR MEDICARE PART A HB ONLY [...] 7:32 PM 07/03/2007 3:42 PM Care Teams Cras Relationship Specialty Start Date End Date Christine Kirk DO [address] [place] [address] PCP - General Family Practice 05/17/25 Bruno Howard MD Oncology Hematology and Oncology 12/03/16 [place] [address] [place] [address] Nephrology 12/21/24 [place] [address] [place] [address] Nephrology 01/25/25
[2025-08-17 13:41] VITALS: BP 149/78; PULSE 69; RESP 18; TEMP 36.6; O2SAT 99; BMI 24.0
--- NOTE | 2025-08-17 13:54 | ED.GENADULT ---
HPI - General Adult General Date Seen: 08/17/25 Chief complaint: Weakness Stated complaint: weakness Time Seen by Provider: 08/17/25 13:41 History of Present Illness HPI narrative: Patient is a pleasant 85-year-old woman here with her for evaluation of weak spells which have been ongoing for about 30 years. She says they used to be infrequent but now they happen more frequently. . She has been seen multiple times, she says that she went to [place] to try and figure out what was going on that could find anything. Does not seem as if anything is really different today, in fact right now she is asymptomatic. She was a little dizzy earlier today but none now. Her says that she suffer some depression and seems to be more symptomatic when she is feeling that he does not care enough about her. She has no acute symptoms such as fevers, vomiting, diarrhea, black or bloody stools, chest pain, difficulty breathing etcetera. She does note she has a history of non-Hodgkin's lymphoma and has some lymph nodes in her abdomen which have been stable. Related Data Home Medications ?Medication ?Instructions ?Recorded ?Confirmed amitriptyline 10 mg tablet 10 mg PO HS 10/23/24 05/23/25 apixaban 2.5 mg tablet (Eliquis) 2.5 mg PO BID 10/23/24 05/23/25 atenolol 25 mg tablet 25 mg PO DAILY 10/23/24 05/23/25 atenolol 50 mg tablet 50 mg PO DAILY 10/23/24 05/23/25 calcium 600 mg capsule 600 mg PO DAILY 10/23/24 05/23/25 cholecalciferol (vitamin D3) 50 2,000 unit PO DAILY 10/23/24 05/23/25 mcg (2,000 unit) capsule famotidine 20 mg tablet 20 mg PO DAILY 10/23/24 05/23/25 levothyroxine 75 mcg tablet 75 mcg PO DAILY 10/23/24 05/23/25 losartan 25 mg tablet 12.5 mg PO BID 10/23/24 05/23/25 bvagbuah-tcp-elnt-FA-vit K-lut PO 10/23/24 omeprazole 20 mg capsule,delayed 20 mg PO DAILY 10/23/24 05/23/25 release psyllium PO 10/23/24 valsartan 40 mg tablet 40 mg PO DAILY 05/05/25 05/05/25 valsartan 80 mg tablet 80 mg PO DAILY 05/23/25 05/23/25 Previous Rx's ?Medication ?Instructions ?Recorded nitrofurantoin 100 mg PO Q12H 7 days #14 caps 05/05/25 monohydrate/macrocrystals 100 mg capsule (Macrobid) Allergies Allergy/AdvReac Type Severity Reaction Status Date / Time ezetimibe (From Zetia) Allergy Mild myalgia Verified 05/23/25 20:15 pravastatin Allergy Mild myalgia Verified 05/23/25 20:15 rosuvastatin (From Crestor) Allergy Mild gi upset Verified 05/23/25 20:15 simvastatin (From Zocor) Allergy Mild myalgia Verified 05/23/25 20:15 lactose Allergy Unknown Verified 05/23/25 20:15 morphine AdvReac Mild Hallucinati Verified 05/23/25 20:15 ng Review of Systems Status of ROS: Reports: 10 or more systems reviewed and unremarkable except as noted in History and below [facility] Social History Smoking Status: Never smoker Do you use any of these nicotine containing products: None Second hand tobacco smoke exposure: No How often do you have a drink containing alcohol: never How often do you have six or more drinks on one occasion: Never AUDIT-C Alcohol total score: 0 Non-prescribed substance use: denies use service: No Exam Narrative: Exam Narrative: Vital signs reviewed In general, alert, nontoxic elderly woman. Head: Normocephalic, atraumatic. Eyes: Sclera clear. Pupils equal and reactive. ENT: Mucous membranes moist. Neck: Supple without adenopathy. Heart: Regular rate and rhythm without murmur. Lungs: Clear. No increased work of breathing, crackles or wheezes. Abdomen: Soft, nontender to palpation. No obvious masses. Extremities: Well perfused, pulses intact. No significant edema. Neurologic: Alert, conversant. Speech fluent, face symmetric. Moves all extremities equally. Skin: Warm, dry well perfused. Affect: Normal. Const: Vital Signs, click to edit/add: Vital Signs - 24 hr 08/17/25 13:41 08/17/25 14:40 Temperature 97.8 F Pulse Rate [Pulse Oximeter] 69 65 Respiratory Rate 18 18 Blood Pressure [Ri ght Upper Arm] 149/78 H 159/69 H Pulse Oximetry 99 99 Oxygen Delivery Me thod Room Air Room Air Course Course ED Course: Reviewed with her that we can certainly check for any acute issues today, that I am unlikely to be able to tell her why she has been having weak spells for 30 years. She understands that. Will check some basic labs, urine. If these are normal would refer her back to primary care. EKG done here shows a sinus rhythm, ventricular rate of 66. No acute ST segment changes. Unremarkable T-waves. Labs are reviewed and are entirely normal including thyroid function. Reviewed with her that I do not see a clear cause for anything acute going on today. With regard to her decades long dizzy spells, I do not have an explanation but she can certainly follow-up primary care to discuss further she would like. Discharge home with , return any time for acute worsening symptoms such as high fevers, fainting, chest pain, shortness of breath etc.. Vital Signs Vital signs: Initial Vital Signs Temperature 97.8 F 08/17/25 13:41 Temperature Source Temporal Artery Scan 08/17/25 13:41 Pulse Rate 69 08/17/25 13:41 Respiratory Rate 18 08/17/25 13:41 Blood Pressure 149/78 H 08/17/25 13:41 Blood Pressure Mean 101 08/17/25 13:41 Blood Pressure Position Sitting 08/17/25 13:41 Pulse Oximetry 99 08/17/25 13:41 Oxygen Delivery Method Room Air 08/17/25 13:41 Vital Signs Temperature 97.8 F 08/17/25 13:41 Pulse Rate 69 08/17/25 13:41 Respiratory Rate 18 08/17/25 13:41 Blood Pressure 149/78 H 08/17/25 13:41 Pulse Oximetry 99 08/17/25 13:41 Oxygen Delivery Method Room Air 08/17/25 13:41 Temperature 97.8 F 08/17/25 13:41 Pulse Rate 65 08/17/25 14:40 Respiratory Rate 18 08/17/25 14:40 Blood Pressure 159/69 H 08/17/25 14:40 Pulse Oximetry 99 08/17/25 14:40 Oxygen Delivery Method Room Air 08/17/25 14:40 Medical Decision Making Lab Data Lab results reviewed: Yes I reviewed the patient's lab results Labs: Lab Results 08/17/25 Range/Units 14:10 WBC 8.96 (4.50-11.00) K/uL RBC 3.83 L (4.00-5.20) m/uL Hgb 11.6 L (12.0-16.0) gm/dL Hct 34.8 (33.0-51.0) % MCV 91 (80-100) fL MCH 30 (26-34) pg MCHC 33 (32-36) gm/dL RDW Coeff of Pam 13.0 (11.5-15.5) % Plt Count 298 (140-440) K/uL Neut % (Auto) 72.2 H (42.0-72.0) % Lymph % (Auto) 18.4 L (20-44) % [place] % (Auto) 8.1 (0.0-11.0) % Eos % (Auto) 0.8 (0.0-7.0) % Baso % (Auto) 0.4 (0.0-3.0) % Neut # (Auto) 6.50 (1.7-7.0) K/uL Lymph # (Auto) 1.60 (0.90-2.90) K/uL [place] # (Auto) 0.70 (0.00-0.90) K/UL Eos # (Auto) 0.07 (0.00-0.50) K/uL Baso # (Auto) 0.04 (0.00-0.30) K/uL Abs Immat Gran (auto) 0.01 (0.00-0.30) K/uL Imm/Tot Granulo (auto) 0.1 % Sodium 135 (135-149) mmol/L Potassium 4.0 (3.6-5.1) mmol/L Chloride 100 (96-114) mmol/L Carbon Dioxide 26 (20-32) mmol/L Anion Gap 9 (7-15) mEq/L BUN 15 (7-30) mg/dL Creatinine 0.9 (0.5-1.5) mg/dL Estimated Creat Clear 35.10 Estimated GFR 63 ml/min Glucose 114 (60-115) mg/dL Calcium 9.0 (8.4-10.6) mg/dL Total Bilirubin 0.4 (0.1-1.5) mg/dL Direct Bilirubin 0.2 (0.0-0.5) mg/dL AST 36 H (12-35) U/L ALT 21 (4-35) U/L Alkaline Phosphatase 76 (40-150) U/L C-Reactive Protein < 0.5 L (0.5-1.0) mg/dL Total Protein 7.5 (6.0-8.3) g/dL Albumin 4.2 (3.3-5.0) g/dL TSH 0.666 (0.270-4.200) uIU/mL Discharge Plan Discharge Clinical Impression: Chronic malaise Patient Disposition: Home, Self-Care Condition: Stable Additional Instructions: Your labs here today are all very reassuring. I do not have an explanation for the weak spells that you have intermittently. You can follow-up with your primary doctor in the next couple of weeks to discuss further. If you have new symptoms such as high fevers, chest pain, shortness of breath, fainting, return to the ER. Prescriptions: No Action atenolol 25 mg tablet 25 mg PO DAILY levothyroxine 75 mcg tablet 75 mcg PO DAILY famotidine 20 mg tablet 20 mg PO DAILY amitriptyline 10 mg tablet 10 mg PO HS losartan 25 mg tablet 12.5 mg PO BID omeprazole 20 mg capsule,delayed release(DR/EC) 20 mg PO DAILY atenolol 50 mg tablet 50 mg PO DAILY Eliquis 2.5 mg tablet 2.5 mg PO BID cholecalciferol (vitamin D3) 50 mcg (2,000 unit) capsule 2,000 unit PO DAILY wjuqphbk-ifd-vqqk-FA-vit K-lut [Centrum Silver Women] PO calcium 600 mg capsule 600 mg PO DAILY psyllium [Metamucil (sugar)] PO valsartan 40 mg tablet 40 mg PO DAILY nitrofurantoin monohyd/m-cryst [Macrobid] 100 mg capsule 100 mg PO Q12H 7 Days Qty: 14 0RF Rx Instructions: must administer with a meal/food valsartan 80 mg tablet 80 mg PO DAILY Follow Up/Referrals: Christine Kirk DO [Primary Care Provider, Family Practice] Stand Alone Forms: MyHealth Info Instructions
[2025-08-17 14:20] LABS: Hematocrit* 34.8 % (33.0-51.0); Hemoglobin* 11.6 gm/dL (12.0-16.0); Immature Granulocytes Abs Auto 0.01 K/uL (0.00-0.30); Immature Granulocytes Pct Auto 0.1 %; Mean Corpuscular HGB Conc 33 gm/dL (32-36); Mean Corpuscular Hemoglobin 30 pg (26-34); Mean Corpuscular Volume 91 fL (80-100); RDW Coefficient of Variation % 13.0 % (11.5-15.5); Red Blood Count* 3.83 m/uL (4.00-5.20); White Blood Count* 8.96 K/uL (4.50-11.00)
[2025-08-17 14:28] LABS: Lymphocytes Absolute Auto 1.60 K/uL (0.90-2.90); Slide Review Reflex No
[2025-08-17 14:35] LABS: Albumin* 4.2 g/dL (3.3-5.0); Chloride* 100 mmol/L (96-114); Sodium* 135 mmol/L (135-149)
[2025-08-17 14:36] LABS: Potassium* 4.0 mmol/L (3.6-5.1)
[2025-08-17 14:38] LABS: Alanine Aminotransferase* 21 U/L (4-35); Alkaline Phosphatase* 76 U/L (40-150); Anion Gap 9 mEq/L (7-15); Aspartate Amino Transferase* 36 U/L (12-35); Bilirubin Direct* 0.2 mg/dL (0.0-0.5); Bilirubin Total* 0.4 mg/dL (0.1-1.5); Blood Urea Nitrogen* 15 mg/dL (7-30); Carbon Dioxide* 26 mmol/L (20-32); Creatinine* 0.9 mg/dL (0.5-1.5); Est. Creatinine Clearance* 35.10; Estimated Glomerular Filt Rate 63 ml/min; Total Protein* 7.5 g/dL (6.0-8.3)
[2025-08-17 14:39] LABS: Calcium* 9.0 mg/dL (8.4-10.6); Glucose* 114 mg/dL (60-115)
[2025-08-17 14:40] VITALS: BP 159/69; PULSE 65; RESP 18; O2SAT 99
[2025-08-17 15:18] LABS: TSH With Reflex to FT4* 0.666 uIU/mL (0.270-4.200)
== END 2025-08-17 15:36 | disposition home or self-care (01) ==
PROVIDERS: Emergency Provider Emergency Medicine; PCP Family Medicine
DX: R53.81 Other malaise (principal)
CPT/HCPCS: 36415; 80048; 80076; 84443; 85025; 86140; 93005; 99283; 99284

== ENCOUNTER 2025-10-12 08:45 | Outpatient (CLI) | payer MEDICARE, SELFPAY ==
--- NOTE | 2025-10-12 09:00 | PE_ITS ---
Patient: WAYNE DINH Facility:?[facility] Patient ID:?[id number] Site Patient ID:?[id number]. Site :?[id number] Study:?PET-Chest/Abd/Pelvis-10/12/2025 10:47:58 AM Ordering Physician:Luis Enrique Suarez Final Report: EXAM: FDG PET-CT Whole Body CLINICAL INFORMATION: 85-year-old woman with indication of lymphoma. History of abdominopelvic lymphadenopathy. Provided clinical note from 08/13/[address] Christine Kirk does not indicate a clinical history of lymph node biopsy. PET CT ordered for additional characterization. TECHNIQUE: Radiopharmaceutical: 18F-fluorodeoxyglucose (18F-FDG) Dose: 13.74 milliCurie. Blood glucose: 73 mg/dL. Image acquisition: At approximately 60 minutes following IV tracer administration via a right arm vein, positron emission tomography was performed from the vertex of the skull to the feet. Non-contrast low-dose helical CT imaging was performed over the same range without breath-hold for attenuation correction of PET images and anatomic correlation; it is neither sufficient, nor should it be substituted for diagnostic purposes. COMPARISON: CTA head and neck 05/12/2025. FDG PET-CT 02/16/2021. FINDINGS: Mediastinal blood pool FDG uptake: SUVmax 2.1 (301:122, 202:120) Liver background parenchymal FDG uptake: SUVmax 2.4 (301:152, 202:150) PET Findings: Dental implant streak artifact partially obscures adjacent structures in the head and neck. Intracranial brain lesions are inadequately characterized and staged by FDG PET- CT. If there is clinical concern for intracranial metastatic disease, correlate with MRI brain with and without gadolinium contrast for assessment and characterization of intracranial lesions. Within these limitations, no gross abnormal focal increased FDG uptake intracranially. Diffuse moderate FDG uptake in the thyroid SUVmax 3.9 (301:95, 202:93). Similar FDG avid right cervical lymphadenopathy, with new multistation FDG avid lymphadenopathy above and below the diaphragm including mediastinal, upper abdominal, and retroperitoneal nodes, for example as below: * Similar [id number]-[id number] FDG uptake in a right level 3 cervical reilly station, SUVmax 3.3 (301:82, 202:80), previously SUV max 3.1 (image 63). *New 1.2 x 1.1 cm right lower paratracheal node SUV max 3.3 (301:115, 202:113) *New 1.6 X 1.0 Cm left lower paratracheal node, SUVmax 3.8, (301:112, 202:110) *New 1.0 x 0.9 Cm retroperitoneal left para-aortic node, SUVmax 2.9, (301:173, 202:171) No abnormal focal increased FDG uptake in the visualized skeleton. Mildly FDG avid peritoneal thickening in the right lower pelvis is compatible with prior inguinal hernia repair SUV max 2.4 (301:223, 202:221). Correlate with clinical history. Tracer uptake elsewhere is physiologic. Non-PET findings: Left lens replacement. Subcentimeter pulmonary nodules, for example a 0.6 cm nodule in the right lower lobe (image 142), previously 0.5 cm on 02/16/2021 (image 121) , remeasured in the same plane, are too small to characterize but favored to represent benign intrapulmonary lymph nodes. Scattered subsegmental atelectasis. Mitral annular calcifications. Coronary artery calcifications. Atherosclerotic calcifications of the thoracic and abdominal aorta. Cholelithiasis. Left adrenal nodular thickening. Colonic diverticulosis. Fibroid uterus. Multilevel degenerative changes in the spine. IMPRESSION: Since 02/16/2021 FDG PET-CT: 1. Similar FDG avid right cervical lymphadenopathy, with new multistation FDG avid lymphadenopathy above and below the diaphragm including mediastinal, upper abdominal, and retroperitoneal nodes. This is compatible with a lymphoproliferative process such as metabolically active lymphoma. The provided clinical paperwork does not describe any prior treatment history for lymphoma, and does not indicate that a lymph node biopsy has been performed. Suggest correlation with lymph node biopsy. If this is a restaging study for lymphoma that had previously received treatment, this will be categorized as [place] 4 because multiple lymph nodes demonstrate FDG uptake above liver background. Clinically correlate. 2. Diffuse moderate FDG uptake in the thyroid is nonspecific, may be inflammatory or related to hypothyroidism. Correlate with thyroid function labs and consider correlation with thyroid ultrasound. 3. Mildly FDG avid peritoneal thickening in the right lower pelvis is compatible with prior inguinal hernia repair. Correlate with clinical history. Dictated by Josh Henderson MD @ 10/13/2025 8:04:59 PM (Electronic Signature)
== END 2025-10-12 08:46 | disposition home or self-care (01) ==
LOC: RAD 08:47
PROVIDERS: PCP Family Medicine; Visit Provider Internal Medicine Hematology & Oncology
DX: C82.08 Follicular lymphoma grade I, lymph nodes of multiple sites (principal); C88.40 Extranodal marginal zone B-cell lymphoma of mucosa-associated lymphoid tissue [MALT-lymphoma] not having achieved remission
CPT/HCPCS: 78816; A9552